=== PATIENT | male | born 1990 | race Caucasian/White ===

== ENCOUNTER 2018-07-31 01:28 | Emergency (ER) | payer OTHER ==
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
[2018-07-31 02:33] LABS: ABSOLUTE BASOPHILS # (AUTO) 0.1 10^3/uL (0.0-0.2); ABSOLUTE EOSINOPHILS # (AUTO) 0.4 10^3/uL (0.0-0.6); ABSOLUTE LYMPHOCYTES (AUTO) 1.8 10^3/uL (0.5-4.7); ABSOLUTE MONOCYTES (AUTO) 0.7 10^3/uL (0.1-1.4); ABSOLUTE NEUT (AUTO) 6.1 10^3/uL (1.7-8.2); BASOPHILS % (AUTO) 0.6 % (0-2); EOSINOPHILS % (AUTO) 4.7 % (0-6); HEMATOCRIT 42.4 % (37.9-51.0); HEMOGLOBIN 14.8 g/dL (13.5-17.0); LYMPHOCYTES % (AUTO) 19.6 % (13-45); MEAN CORPUSCULAR HEMOGLOBIN 30.5 pg (27.0-33.4); MEAN CORPUSCULAR VOLUME 87 fl (80-97); MONOCYTES % (AUTO) 7.7 % (3-13); PLATELET COUNT 251 10^3/uL (150-450); RED BLOOD COUNT 4.86 10^6/uL (4.35-5.55); RED CELL DISTRIBUTION WIDTH 12.2 % (11.5-14.0); SEGMENTED NEUTROPHILS % (AUTO) 67.4 % (42-78); TOTAL CELLS COUNTED % (AUTO) 100 %
[2018-07-31 02:48] LABS: ALANINE AMINOTRANSFERASE 31 U/L (21-72); ALBUMIN 4.5 g/dL (3.5-5.0); ALKALINE PHOSPHATASE 50 U/L (38-126); ANION GAP 10 (5-19); ASPARTATE AMINO TRANSFERASE 28 U/L (17-59); BILIRUBIN,DIRECT 0.3 mg/dL (0.0-0.4); BILIRUBIN,TOTAL 0.5 mg/dL (0.2-1.3); BLOOD UREA NITROGEN 11 mg/dL (7-20); CALCIUM 9.6 mg/dL (8.4-10.2); CARBON DIOXIDE 28 mmol/L (22-30); CHLORIDE 101 mmol/L (98-107); GLUCOSE 100 mg/dL (75-110); POTASSIUM 3.9 mmol/L (3.6-5.0); SODIUM 139.4 mmol/L (137-145); TOTAL PROTEIN 7.3 g/dL (6.3-8.2)
[2018-07-31 03:33] VITALS: BP 135/84
== END 2018-07-31 03:33 | disposition home or self-care (01) ==
LOC: ER 01:28
DX: F41.9 Anxiety disorder, unspecified (principal); F32.9 Major depressive disorder, single episode, unspecified; R11.0 Nausea; R19.7 Diarrhea, unspecified; Z87.891 Personal history of nicotine dependence
CPT/HCPCS: 36415; 80053; 85025; 87040; 99284

== ENCOUNTER 2018-11-03 00:41 | Emergency (ER) | payer OTHER ==
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
[2018-11-03 01:59] LABS: ABSOLUTE BASOPHILS # (AUTO) 0.1 10^3/uL (0.0-0.2); ABSOLUTE EOSINOPHILS # (AUTO) 0.7 10^3/uL (0.0-0.6); ABSOLUTE LYMPHOCYTES (AUTO) 2.3 10^3/uL (0.5-4.7); ABSOLUTE NEUT (AUTO) 10.2 10^3/uL (1.7-8.2); BASOPHILS % (AUTO) 0.5 % (0-2); EOSINOPHILS % (AUTO) 5.1 % (0-6); HEMATOCRIT 44.6 % (37.9-51.0); HEMOGLOBIN 15.5 g/dL (13.5-17.0); LYMPHOCYTES % (AUTO) 16.3 % (13-45); MEAN CORPUSCULAR HEMOGLOBIN 30.2 pg (27.0-33.4); MEAN CORPUSCULAR HGB CONC 34.8 g/dL (32.0-36.0); MEAN CORPUSCULAR VOLUME 87 fl (80-97); MONOCYTES % (AUTO) 6.9 % (3-13); PLATELET COUNT 285 10^3/uL (150-450); RED BLOOD COUNT 5.13 10^6/uL (4.35-5.55); RED CELL DISTRIBUTION WIDTH 12.9 % (11.5-14.0); SEGMENTED NEUTROPHILS % (AUTO) 71.2 % (42-78); TOTAL CELLS COUNTED % (AUTO) 100 %; WHITE BLOOD COUNT 14.2 10^3/uL (4.0-10.5)
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
[2018-11-03 02:18] LABS: APPEARANCE,URINE SLIGHTLY-CLOUDY; BILIRUBIN,URINE NEGATIVE (NEGATIVE); COLOR,URINE YELLOW; GLUCOSE, URINE NEGATIVE (NEGATIVE); KETONES,URINE NEGATIVE (NEGATIVE); LEUKOCYTE ESTERASE,URINE NEGATIVE (NEGATIVE); NITRITE,URINE NEGATIVE (NEGATIVE); PROTEIN,URINE NEGATIVE (NEGATIVE); URINE SPECIFIC GRAVITY 1.018; UROBILINOGEN,URINE NEGATIVE mg/dL (<2.0)
[2018-11-03 02:25] LABS: ALANINE AMINOTRANSFERASE 51 U/L (21-72); ALBUMIN 5.2 g/dL (3.5-5.0); ALKALINE PHOSPHATASE 67 U/L (38-126); ANION GAP 14 (5-19); ASPARTATE AMINO TRANSFERASE 32 U/L (17-59); BILIRUBIN,DIRECT 0.3 mg/dL (0.0-0.4); BILIRUBIN,TOTAL 0.6 mg/dL (0.2-1.3); BLOOD UREA NITROGEN 19 mg/dL (7-20); CALCIUM 10.4 mg/dL (8.4-10.2); CARBON DIOXIDE 32 mmol/L (22-30); CHLORIDE 99 mmol/L (98-107); GLUCOSE 103 mg/dL (75-110); POTASSIUM 4.1 mmol/L (3.6-5.0); SODIUM 145.2 mmol/L (137-145); TOTAL PROTEIN 8.8 g/dL (6.3-8.2)
[2018-11-03 02:28] LABS: ALCOHOL < 10 mg/dL (NONE DETECTED)
[2018-11-03 02:34] LABS: URINE AMPHETAMINES SCREEN NEGATIVE; URINE BARBITURATES SCREEN NEGATIVE; URINE BENZODIAZEPINES SCREEN NEGATIVE; URINE COCAINE SCREEN NEGATIVE; URINE MARIJUANA (THC) SCREEN NEGATIVE; URINE METHADONE SCREEN NEGATIVE; URINE PHENCYCLIDINE SCREEN NEGATIVE
[2018-11-03 03:04] VITALS: BP 158/72
== END 2018-11-03 03:03 | disposition home or self-care (01) ==
LOC: ER 00:41
DX: S33.5XXA Sprain of ligaments of lumbar spine, initial encounter (principal); S16.1XXA Strain of muscle, fascia and tendon at neck level, initial encounter; M54.2 Cervicalgia; M54.5 Low back pain; R10.817 Generalized abdominal tenderness; V47.5XXA Car driver injured in collision with fixed or stationary object in traffic accident, initial encounter; Y92.007 Garden or yard of unspecified non-institutional (private) residence as the place of occurrence of the external cause; R04.2 Hemoptysis; R53.83 Other fatigue; F17.210 Nicotine dependence, cigarettes, uncomplicated; Z88.0 Allergy status to penicillin; Z88.1 Allergy status to other antibiotic agents
CPT/HCPCS: 36415; 70450; 71046; 72125; 72131; 80053; 80307; 81001; 85025; 99284

== ENCOUNTER 2018-11-14 14:25 | Emergency (ER) | payer SELFPAY ==
[2018-11-14 16:19] LABS: ABSOLUTE BASOPHILS # (AUTO) 0.1 10^3/uL (0.0-0.2); ABSOLUTE EOSINOPHILS # (AUTO) 0.1 10^3/uL (0.0-0.6); ABSOLUTE LYMPHOCYTES (AUTO) 1.9 10^3/uL (0.5-4.7); ABSOLUTE MONOCYTES (AUTO) 1.2 10^3/uL (0.1-1.4); ABSOLUTE NEUT (AUTO) 9.4 10^3/uL (1.7-8.2); BASOPHILS % (AUTO) 0.4 % (0-2); EOSINOPHILS % (AUTO) 0.7 % (0-6); HEMATOCRIT 44.4 % (37.9-51.0); LYMPHOCYTES % (AUTO) 14.9 % (13-45); MEAN CORPUSCULAR HEMOGLOBIN 29.6 pg (27.0-33.4); MEAN CORPUSCULAR HGB CONC 33.7 g/dL (32.0-36.0); MEAN CORPUSCULAR VOLUME 88 fl (80-97); MONOCYTES % (AUTO) 9.6 % (3-13); PLATELET COUNT 294 10^3/uL (150-450); RED BLOOD COUNT 5.06 10^6/uL (4.35-5.55); RED CELL DISTRIBUTION WIDTH 13.7 % (11.5-14.0); SEGMENTED NEUTROPHILS % (AUTO) 74.4 % (42-78); TOTAL CELLS COUNTED % (AUTO) 100 %; WHITE BLOOD COUNT 12.6 10^3/uL (4.0-10.5)
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
[2018-11-14 16:39] LABS: ALANINE AMINOTRANSFERASE 32 U/L (21-72); ALKALINE PHOSPHATASE 58 U/L (38-126); ANION GAP 10 (5-19); ASPARTATE AMINO TRANSFERASE 22 U/L (17-59); BILIRUBIN,DIRECT 0.2 mg/dL (0.0-0.4); BILIRUBIN,TOTAL 0.7 mg/dL (0.2-1.3); BLOOD UREA NITROGEN 21 mg/dL (7-20); CALCIUM 10.1 mg/dL (8.4-10.2); CARBON DIOXIDE 28 mmol/L (22-30); CHLORIDE 102 mmol/L (98-107); GLUCOSE 104 mg/dL (75-110); POTASSIUM 4.3 mmol/L (3.6-5.0); SODIUM 139.7 mmol/L (137-145)
[2018-11-14 16:42] LABS: ACETAMINOPHEN < 10 ug/mL (10-30); ALCOHOL < 10 mg/dL (NONE DETECTED); SALICYLATE < 1.0 mg/dL (2.0-20.0)
[2018-11-14] MEDS ORDERED: HALOPERIDOL LACTATE INJ 5 MG/1 ML VIAL IM ONE (16:48)
[2018-11-14] MEDS ORDERED: CHLORPROMAZINE HCL 50 MG TABLET PO PRN (16:49)
[2018-11-14] MEDS ORDERED: BENZTROPINE MESYLATE INJ 2 MG/2 ML AMPULE IM ONE (16:49)
[2018-11-14 16:53] LABS: AMORPHOUS SEDIMENT,URINE TRACE /HPF; APPEARANCE,URINE CLOUDY; BILIRUBIN,URINE NEGATIVE (NEGATIVE); COLOR,URINE YELLOW; GLUCOSE, URINE NEGATIVE (NEGATIVE); KETONES,URINE NEGATIVE (NEGATIVE); LEUKOCYTE ESTERASE,URINE NEGATIVE (NEGATIVE); NITRITE,URINE NEGATIVE (NEGATIVE); PROTEIN,URINE 100 mg/dL (NEGATIVE); URINE SPECIFIC GRAVITY 1.025; UROBILINOGEN,URINE NEGATIVE mg/dL (<2.0)
--- NOTE | 2018-11-14 16:56 | PSYCHOLOGICAL NOTE ---
Psych Note - Psych Note Date seen by psych provider: 11/14/18 Time seen by psych provider: 15:30 Psych Note: Reason for Consult: homicidal ideation, or behavior Patient is observed appearing to be possibly under the influence. Patient's eyes are starting around the room as he speaks with clinician. He discloses paranoid delusions of not remembering anything and confusion on what brought him to [facility]. Clinician notes patient was previously disclosing to [facility] staff and D that he wanted to kill people has told his parents guns. He also reported that he had previously been to [place] to obtain sobriety. Patient states he has no memory of any of this. Patient is alert and orientated to person place. Mood is anxious with congruent affect. Clinician notes patient's eyes is starting around the room and makes very little eye contact. Patient currently denies homicidal and suicidal ideation however it is noted that the patient just previously reported homicidal ideation proximally 30 minutes ago to [facility] staff and D. Patient is very anxious confused presents as if under the influence of methamphetamine. Medication recommendations per [facility]'s contracted psychiatrist Dr. 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 There is concern the patient is currently under the influence. Medication recommendations have been provided; patient will be reevaluated. Dr. Kahn was consulted and care management this patient; attending physicians in agreement with recommendations and disposition.
[2018-11-14 17:09] LABS: URINE BARBITURATES SCREEN NEGATIVE; URINE BENZODIAZEPINES SCREEN UNCONFIRMED POSITIVE; URINE COCAINE SCREEN NEGATIVE; URINE MARIJUANA (THC) SCREEN NEGATIVE; URINE METHADONE SCREEN NEGATIVE; URINE PHENCYCLIDINE SCREEN NEGATIVE
--- NOTE | 2018-11-14 17:41 | EKG REPORT ---
SEVERITY:- OTHERWISE NORMAL ECG - SINUS TACHYCARDIA : Confirmed by: Jeffrey Curtis MD 14-Nov-2018 17:40:10
[2018-11-14 18:25] LABS: CHLAM PCR NOT DETECTED (NOT DETECT); GON PCR NOT DETECTED (NOT DETECT)
--- NOTE | 2018-11-15 09:11 | ER Document Report ---
Doctor's Note Notes: 11/15/18 09:11 As the rounding physician for our psychiatric patients, I have reviewed the chart, vitals, lab work. Patient has been examined and noted to be . I am awaiting mental health in put.
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
[2018-11-15 12:54] VITALS: BP 106/60
== END 2018-11-15 13:00 | disposition home or self-care (01) ==
LOC: ER 14:25
DX: R45.850 Homicidal ideations (principal); F11.99 Opioid use, unspecified with unspecified opioid-induced disorder; F32.9 Major depressive disorder, single episode, unspecified; R00.0 Tachycardia, unspecified; R03.0 Elevated blood-pressure reading, without diagnosis of hypertension; F17.210 Nicotine dependence, cigarettes, uncomplicated; Z71.6 Tobacco abuse counseling; Z88.0 Allergy status to penicillin; Z88.1 Allergy status to other antibiotic agents
CPT/HCPCS: 93005; 99406; 99285; 96372; 36415; 80307 ×4; 85025; 80053; 81001; 87491; 87591; 93010; J0515; J1630

== ENCOUNTER 2018-11-26 16:27 | Emergency (ER) | payer OTHER ==
[2018-11-26 16:41] VITALS: BP 128/84
--- NOTE | 2018-11-26 18:25 | RADIOLOGY REPORT (SQ) ---
EXAM DESCRIPTION: WRIST LEFT 3 VIEWS COMPLETED DATE/TIME: 11/26/2018 6:05 pm REASON FOR STUDY: fall COMPARISON: None. NUMBER OF VIEWS: Four views TECHNIQUE: AP, lateral, oblique, and scaphoid radiographic images acquired of the left wrist. LIMITATIONS: None. FINDINGS: MINERALIZATION: Normal. BONES: No acute fracture or dislocation. No worrisome bone lesions. Normal alignment. SOFT TISSUES: No soft tissue swelling. No foreign body. OTHER: No other significant finding. IMPRESSION: NEGATIVE STUDY OF THE LEFT WRIST. NO RADIOGRAPHIC EVIDENCE OF ACUTE INJURY. TECHNICAL DOCUMENTATION: JOB ID: [id number] [employer]- All Rights Reserved Reading location - IP/workstation name: [email or web address]
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
== END 2018-11-26 19:05 | disposition home or self-care (01) ==
LOC: ER 16:27
DX: S69.92XA Unspecified injury of left wrist, hand and finger(s), initial encounter (principal); M25.532 Pain in left wrist; V87.7XXA Person injured in collision between other specified motor vehicles (traffic), initial encounter; X50.9XXA Other and unspecified overexertion or strenuous movements or postures, initial encounter
CPT/HCPCS: 99283; 73110; L3908

== ENCOUNTER 2018-12-03 17:07 | Emergency (ER) | payer SELFPAY ==
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
[2018-12-03] MEDS ORDERED: DIPH/PERTUSS(ACELL)/TETANUS VAC/PF 0.5 ML SYR (>=10YO) IM ONE (18:13)
[2018-12-03] MEDS ORDERED: IBUPROFEN 800 MG TABLET PO ONE (18:13)
[2018-12-03] MEDS ORDERED: LIDOCAINE 1% INJ-PF (10 MG/ML) 30 ML SDV INJ ONE (18:14)
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
[2018-12-03] MEDS ORDERED: KETOROLAC TROMETHAMINE INJ/PF 30 MG/1 ML SDV IV ONE (20:16)
[2018-12-03] MEDS ORDERED: ONDANSETRON HCL INJ/PF 4 MG/2 ML SDV IV ONE (20:16)
[2018-12-03] MEDS ORDERED: DOXYCYCLINE HYCLATE 100 MG TABLET PO ONE (20:54)
[2018-12-03 22:41] VITALS: BP 130/72
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
== END 2018-12-03 22:41 | disposition home or self-care (01) ==
LOC: ER 17:07
DX: S41.111A Laceration without foreign body of right upper arm, initial encounter (principal); S09.90XA Unspecified injury of head, initial encounter; M25.521 Pain in right elbow; Y09 Assault by unspecified means; Y04.0XXA Assault by unarmed brawl or fight, initial encounter; Z88.0 Allergy status to penicillin; Z88.3 Allergy status to other anti-infective agents; Z23 Encounter for immunization; F17.200 Nicotine dependence, unspecified, uncomplicated
CPT/HCPCS: 99284; 90471; 96374; 96375; 73130; 73110; 70450; 72125; 90715; 12002; J3490; J1885; J2405

== ENCOUNTER 2018-12-04 00:47 | Emergency (ER) | payer SELFPAY ==
[2018-12-04] MEDS ORDERED: LIDOCAINE 1%/EPINEPHRINE INJ 20 ML VIAL INJ ONE (02:42)
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
[2018-12-04 06:08] VITALS: BP 123/52
== END 2018-12-04 06:06 | disposition home or self-care (01) ==
LOC: ER 00:47
DX: S61.411A Laceration without foreign body of right hand, initial encounter (principal); S01.111A Laceration without foreign body of right eyelid and periocular area, initial encounter; Y09 Assault by unspecified means; F12.10 Cannabis abuse, uncomplicated; Z88.0 Allergy status to penicillin; Z88.1 Allergy status to other antibiotic agents
CPT/HCPCS: 99283; 12002; J3490

== ENCOUNTER 2018-12-04 08:55 | Observation (INO) | payer SELFPAY ==
[~2018-12-04 08:55] MED LIST: SUCCINYLCHOLINE CHLORIDE INJ 200 MG/10 ML VIAL ONE
[2018-12-04] MEDS ORDERED: LIDOCAINE 1% INJ-PF (10 MG/ML) 30 ML SDV INJ ONE (09:04)
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
[2018-12-04] MEDS ORDERED: FENTANYL CITRATE INJ/PF 100 MCG/2 ML AMPUL IV ONE (09:25)
[2018-12-04] MEDS ORDERED: ONDANSETRON HCL INJ/PF 4 MG/2 ML SDV IV ONE (09:27)
[2018-12-04] MEDS ORDERED: LIDOCAINE 2% INJ-PF (20 MG/ML) 10 ML AMPUL ONE (10:02)
[2018-12-04] MEDS ORDERED: MIDAZOLAM 2 MG/2 ML INJ ONE (10:03)
[2018-12-04] MEDS ORDERED: PROPOFOL INJ 200 MG/20 ML VIAL IV ONE (10:03)
[2018-12-04] MEDS ORDERED: DEXAMETHASONE SOD PHOSPHATE INJ 4 MG/1 ML VIAL ONE (10:03)
[2018-12-04] MEDS ORDERED: PROMETHAZINE HCL INJ 25 MG/1 ML VIAL ONE (10:03)
[2018-12-04] MEDS ORDERED: EPHEDRINE SULFATE INJ 50 MG/1 ML AMPULE ONE (10:03)
[2018-12-04] MEDS ORDERED: FENTANYL CITRATE INJ/PF 100 MCG/2 ML AMPUL ONE (10:03)
[2018-12-04] MEDS ORDERED: ONDANSETRON HCL INJ/PF 4 MG/2 ML SDV ONE (10:04)
[2018-12-04] MEDS ORDERED: ACETAMINOPHEN 0 MG/0 ML RTUPB IV ONE (10:04)
[2018-12-04] MEDS ORDERED: KETAMINE HCL INJ 500 MG/10 ML VIAL ONE (10:18)
[2018-12-04] MEDS ORDERED: DEXMEDETOMIDINE INJ 80 MCG/20 ML VIAL IV ONE (10:19)
[2018-12-04] MEDS ORDERED: FENTANYL CITRATE INJ/PF 250 MCG/5 ML AMPULE ONE (10:19)
[2018-12-04] MEDS ORDERED: VANCOMYCIN HCL INJ 1000 MG VIAL ONE (10:19)
[2018-12-04 10:49] LABS: HEMATOCRIT 33.7 % (37.9-51.0); HEMOGLOBIN 11.6 g/dL (13.5-17.0); MEAN CORPUSCULAR HEMOGLOBIN 30.3 pg (27.0-33.4); MEAN CORPUSCULAR HGB CONC 34.3 g/dL (32.0-36.0); MEAN CORPUSCULAR VOLUME 89 fl (80-97); PLATELET COUNT 188 10^3/uL (150-450); RED BLOOD COUNT 3.81 10^6/uL (4.35-5.55); RED CELL DISTRIBUTION WIDTH 13.5 % (11.5-14.0); WHITE BLOOD COUNT 20.9 10^3/uL (4.0-10.5)
[2018-12-04] MEDS ORDERED: ONDANSETRON HCL INJ/PF 4 MG/2 ML SDV IV PRN (13:56)
[2018-12-04] MEDS ORDERED: MEPERIDINE HCL/PF INJ 25 MG/1 ML DISP.SYRIN IV PRN (13:56)
[2018-12-04] MEDS ORDERED: PROMETHAZINE HCL INJ 25 MG/1 ML VIAL IV PRN ×2 (13:56)
[2018-12-04] MEDS ORDERED: FENTANYL CITRATE INJ/PF 100 MCG/2 ML AMPUL IV PRN ×3 (13:56)
[2018-12-04] MEDS ORDERED: DIPHENHYDRAMINE HCL 50 MG/ML VIAL IV PRN (13:56)
--- NOTE | 2018-12-04 14:35 | PDOC H&P ---
History of Present Illness Admission Date/PCP: 12/04/18 10:07 Patient complains of: bleeding from right wrist History of Present Illness: TONY HUTSON is a 28 year old male who is being taken cared for by ER MD for bleeding from right wrist laceration. Patient apparently not able to tell cause of laceration with bleeding. I took over care of patient in the ER but unable to control the bleeding and lost some blood. Has a tourniquet right arm. Patient immediately brought to the OR where he had ligation of a branch of the radial artery close to the base of the hypothenar muscle , under general anesthesisa. He was hypotensive at the end of the case and given 2 units PRBC in the OR with stabilization of vital signs. Past Medical History Psychiatric Medical History: Reports: Depression Past Surgical History Past Surgical History: Reports: Orthopedic Surgery - right hand; left knee Social History Smoking Status: Current Every Day Smoker - Advance Directive Resuscitation Status: Full Code Family History Family History: None Parental Family History Reviewed: No Children Family History Reviewed: No Sibling(s) Family History Reviewed.: No Medication/Allergy Home Medications: No Home Medications 12/04/18 Allergies/Adverse Reactions: amoxicillin Allergy (Verified 11/26/18 16:29) azithromycin [From Zithromax] Allergy (Verified 11/26/18 16:29) Penicillins Allergy (Verified 11/26/18 16:29) Review of Systems Musculoskeletal: PRESENT: other - laceration right wrist/ base of palm with transection of a branch of the radial artery. Neurological: PRESENT: other - able to feel with right finges at the completion of surgery Physical Exam Vital Signs: Temp Pulse Resp BP Pulse Ox 97.5 F 93 16 112/69 100 12/04/18 11:40 12/04/18 12:25 12/04/18 12:25 12/04/18 12:25 12/04/18 12:25 Intake & Output 12/03/18 12/04/18 12/05/18 06:59 06:59 06:59 Weight 80.739 kg General appearance: PRESENT: mild distress Eye exam: PRESENT: conjunctiva pink Mouth exam: PRESENT: dry mucosa Neck exam: PRESENT: full ROM Respiratory exam: PRESENT: clear to auscultation kenyatta Cardiovascular exam: PRESENT: RRR Pulses: PRESENT: normal carotid pulses Vascular exam: PRESENT: normal capillary refill GI/Abdominal exam: PRESENT: soft Rectal exam: PRESENT: deferred Extremities exam: PRESENT: other - laceration base of right thenar muscle with transection of a branch of the radial artery Musculoskeletal exam: PRESENT: ambulatory Neurological exam: PRESENT: alert, oriented to person, oriented to place, oriented to time, oriented to situation Psychiatric exam: PRESENT: anxious Skin exam: PRESENT: normal color, warm Results Laboratory Results: 12/04/18 09:39 12/04/18 12/04/18 09:39 10:42 WBC 20.9 H RBC 3.81 L Hgb 11.6 L Hct 33.7 L MCV 89 MCH 30.3 MCHC 34.3 RDW 13.5 Plt Count 188 Blood Type B POSITIVE Antibody Screen NEGATIVE Assessment & Plan - Diagnosis (3) Laceration of right palm Qualifiers: Encounter type: initial encounter Qualified Code(s): S61.411A - Laceration without foreign body of right hand, initial encounter Is this a current diagnosis for this admission?: Yes (4) Lacerations of multiple sites of right arm Is this a current diagnosis for this admission?: Yes - Time Time Spent: 30 to 50 Minutes - Inpatient Certification Medical Necessity: Need Close Monitoring Due to Risk of Patient Decompensation, Need For IV Fluids, Need for Pain Control, Need for IV Antibiotics, Risk of Complication if Not Cared For in Hospital - Plan Summary Plan Summary: Transfused 2 units PRBCs Monitor right arm circulation and function IV antibiotics
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
[2018-12-04 17:29] LABS: ABSOLUTE BASOPHILS # (AUTO) 0.1 10^3/uL (0.0-0.2); ABSOLUTE EOSINOPHILS # (AUTO) 0.3 10^3/uL (0.0-0.6); ABSOLUTE LYMPHOCYTES (AUTO) 2.2 10^3/uL (0.5-4.7); ABSOLUTE NEUT (AUTO) 7.5 10^3/uL (1.7-8.2); BASOPHILS % (AUTO) 0.9 % (0-2); HEMOGLOBIN 10.8 g/dL (13.5-17.0); LYMPHOCYTES % (AUTO) 20.1 % (13-45); MEAN CORPUSCULAR HEMOGLOBIN 30.5 pg (27.0-33.4); MEAN CORPUSCULAR HGB CONC 34.8 g/dL (32.0-36.0); MEAN CORPUSCULAR VOLUME 88 fl (80-97); MONOCYTES % (AUTO) 8.5 % (3-13); PLATELET COUNT 134 10^3/uL (150-450); RED BLOOD COUNT 3.54 10^6/uL (4.35-5.55); RED CELL DISTRIBUTION WIDTH 13.9 % (11.5-14.0); SEGMENTED NEUTROPHILS % (AUTO) 67.5 % (42-78); TOTAL CELLS COUNTED % (AUTO) 100 %; WHITE BLOOD COUNT 11.1 10^3/uL (4.0-10.5)
[2018-12-04] MEDS: KETOROLAC TROMETHAMINE INJ/PF 30 MG/1 ML SDV IV SCH ×2 (17:29→23:49)
[2018-12-04] MEDS ORDERED: VANCOMYCIN HCL 1,000 MG in DEXTROSE 5%-WATER 250 ML IV SCH (22:00)
[2018-12-04] MEDS: VANCOMYCIN HCL 1,250 MG in DEXTROSE 5%-WATER 250 ML IV SCH (22:06)
[2018-12-05] MEDS: KETOROLAC TROMETHAMINE INJ/PF 30 MG/1 ML SDV IV SCH ×2 (05:16→15:04)
[2018-12-05] MEDS: VANCOMYCIN HCL 1,250 MG in DEXTROSE 5%-WATER 250 ML IV SCH ×2 (05:16→15:04)
[2018-12-05 08:08] LABS: ABSOLUTE BASOPHILS # (AUTO) 0.1 10^3/uL (0.0-0.2); ABSOLUTE EOSINOPHILS # (AUTO) 0.4 10^3/uL (0.0-0.6); ABSOLUTE LYMPHOCYTES (AUTO) 2.2 10^3/uL (0.5-4.7); ABSOLUTE MONOCYTES (AUTO) 0.9 10^3/uL (0.1-1.4); ABSOLUTE NEUT (AUTO) 7.1 10^3/uL (1.7-8.2); BASOPHILS % (AUTO) 0.5 % (0-2); EOSINOPHILS % (AUTO) 4.1 % (0-6); HEMATOCRIT 28.4 % (37.9-51.0); HEMOGLOBIN 10.1 g/dL (13.5-17.0); LYMPHOCYTES % (AUTO) 20.6 % (13-45); MEAN CORPUSCULAR HGB CONC 35.7 g/dL (32.0-36.0); MEAN CORPUSCULAR VOLUME 87 fl (80-97); MONOCYTES % (AUTO) 8.3 % (3-13); PLATELET COUNT 127 10^3/uL (150-450); RED BLOOD COUNT 3.26 10^6/uL (4.35-5.55); RED CELL DISTRIBUTION WIDTH 13.8 % (11.5-14.0); SEGMENTED NEUTROPHILS % (AUTO) 66.5 % (42-78); TOTAL CELLS COUNTED % (AUTO) 100 %; WHITE BLOOD COUNT 10.7 10^3/uL (4.0-10.5)
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
[2018-12-05 15:39] VITALS: BP 101/83
== END 2018-12-05 17:00 | disposition home or self-care (01) ==
LOC: ER 08:55 → INTOOBSV 10:07 → EH 10:07 → 4N 13:05
PROVIDERS: ADMIT Surgery; ATTEND Surgery
PROC: 03QB0ZZ Repair Right Radial Artery, Open Approach (ICD-10-PCS; 2018-12-04)
PROC: 0KQC0ZZ Repair Right Hand Muscle, Open Approach (ICD-10-PCS; 2018-12-04)
PROC: 30233N1 Transfusion of Nonautologous Red Blood Cells into Peripheral Vein, Percutaneous Approach (ICD-10-PCS; principal; 2018-12-04 11:00)
DX: S65.111A Laceration of radial artery at wrist and hand level of right arm, initial encounter (principal); S61.411A Laceration without foreign body of right hand, initial encounter; S66.821A Laceration of other specified muscles, fascia and tendons at wrist and hand level, right hand, initial encounter; S41.111A Laceration without foreign body of right upper arm, initial encounter; T14.8XXA Other injury of unspecified body region, initial encounter; Y04.0XXA Assault by unarmed brawl or fight, initial encounter; W25.XXXA Contact with sharp glass, initial encounter; I95.81 Postprocedural hypotension; F17.200 Nicotine dependence, unspecified, uncomplicated; Z98.890 Other specified postprocedural states; R00.0 Tachycardia, unspecified; Z88.0 Allergy status to penicillin
CPT/HCPCS: 99291; 96374; 96375; 86900; 86901; 36415 ×2; 36430; 86850; 82565; 85025 ×2; 86920; 35207; 13131; G0378 ×2; P9016; J2250; J3010 ×2; J3490; J1885 ×2; J0330; J2405; J7060 ×2; J3370 ×2; 1840; J0131; J1100; J2550; J2704

== ENCOUNTER 2019-11-17 17:23 | Emergency (ER) | payer SELFPAY ==
[2019-11-17 19:46] VITALS: BP 123/75
--- NOTE | 2019-11-17 19:55 | ER Document Report ---
ED General - General Chief Complaint: Possible Overdose Stated Complaint: POSSIBLE OVERDOSE Time Seen by Provider: 11/17/19 18:33 Mode of Arrival: Medic Information source: Patient TRAVEL OUTSIDE OF THE [place] IN LAST 30 DAYS: No - HPI Onset: Other - patient says he used a needle that someone with HIV and Hep C used about 2 weeks ago. Patient used heroin again today but he says this was with a clean needle Onset/Duration: Gradual Quality of pain: No pain Severity: Mild Associated symptoms: Other - light headed Exacerbated by: Denies Relieved by: Denies Similar symptoms previously: Yes - patient has used drugs in the past frequently Recently seen / treated by doctor: No Notes: 29 year old male with a history of substance abuse (sounds like mostly Heroin) here because he injected Heroin today and because he would like to be tested for HIV and Hepatitis. The patient says he he used a needle about 2 weeks ago that another person who has HIV and Hep C apparently is known to have. The patient says he is not really here for OD symptoms despite what EMS said on patient arrival. The patient is really here because he wants to be tested for HIV and Hepatitis. The patient denies any systemic symptoms of an infectious process however. - Related Data Allergies/Adverse Reactions: amoxicillin Allergy (Verified 11/26/18 16:29) azithromycin [From Zithromax] Allergy (Verified 11/26/18 16:29) Penicillins Allergy (Verified 11/26/18 16:29) Past Medical History - Social History Smoking Status: Current Some Day Smoker Chew tobacco use (# tins/day): No Frequency of alcohol use: Occasional Drug Abuse: Heroin Lives with: Alone Family History: Reviewed & Not Pertinent Patient has suicidal ideation: No Patient has homicidal ideation: No Renal/ Medical History: Denies: Hx Peritoneal Dialysis Psychiatric Medical History: Reports: Hx Depression - Anxiety, Other - Substance Abuse Past Surgical History: Reports: Hx Orthopedic Surgery - right hand; left knee - Immunizations Immunizations up to date: Yes Hx Diphtheria, Pertussis, Tetanus Vaccination: Yes Review of Systems - Review of Systems Constitutional: No symptoms reported EENT: No symptoms reported Cardiovascular: No symptoms reported Respiratory: No symptoms reported Gastrointestinal: No symptoms reported Genitourinary: No symptoms reported Male Genitourinary: No symptoms reported Musculoskeletal: No symptoms reported Skin: No symptoms reported Hematologic/Lymphatic: No symptoms reported Neurological/Psychological: Other - drug use/relapse (heroin) Physical Exam - Vital signs Vitals: Resp Pulse Ox 16 100 11/17/19 17:35 11/17/19 17:35 - Notes Notes: GENERAL: Well-appearing, well-nourished and in no acute distress. Poor hygiene. HEAD: Atraumatic, normocephalic. EYES: Pupils equal round and reactive to light, extraocular movements intact, sclera anicteric, conjunctiva are normal. ENT: TMs normal, nares patent, oropharynx clear without exudates. Moist mucous membranes. NECK: Normal range of motion, supple without lymphadenopathy or JVD. LUNGS: Breath sounds clear to auscultation bilaterally and equal. No wheezes rales or rhonchi. HEART: Regular rate and rhythm without murmurs, rubs or gallops. ABDOMEN: Soft, nontender, normoactive bowel sounds. No guarding, no rebound. No masses appreciated. EXTREMITIES: Normal range of motion, no pitting or edema. No clubbing or cyanosis. NEUROLOGICAL: Cranial nerves II through XII grossly intact. Normal speech, normal gait. PSYCH: Normal mood, normal affect. SKIN: Warm, Dry, normal turgor, no rashes or lesions noted. Course - Re-evaluation Re-evalutation: 11/17/19 20:46 The patient came to the ER since he wanted to be tested for HIV and Hepatitis. I ordered these tests for the patient but he apparently eloped before the blood work could be obtained. The patient had no SI or HI and he was using drugs to get high and not to harm himself. I offered the patient outpatient mental health services before he eloped but he declined said services. - Vital Signs Vital signs: Temp Pulse Resp BP Pulse Ox 10 L 123/75 99 11/17/19 19:01 11/17/19 19:01 11/17/19 19:01 Discharge - Discharge Clinical Impression: Heroin abuse Condition: Stable Disposition: ELOPED Additional Instructions: Stop using heroin and other stress drugs. Follow up with a primary car e doctor or another clinic for HIV and Hepatitis Testing since you left before testing could be done here in the ER.
--- NOTE | 2019-11-17 21:29 | EKG REPORT ---
SEVERITY:- NORMAL ECG - SINUS RHYTHM : Confirmed by: Rosalinda Ma MD 17-Nov-2019 21:27:40
== END 2019-11-17 20:29 | disposition left against medical advice (07) ==
LOC: ER 17:23
DX: F11.10 Opioid abuse, uncomplicated (principal); Z20.5 Contact with and (suspected) exposure to viral hepatitis; Z20.828 Contact with and (suspected) exposure to other viral communicable diseases; F17.200 Nicotine dependence, unspecified, uncomplicated; Z88.0 Allergy status to penicillin; Z88.1 Allergy status to other antibiotic agents; Z53.20 Procedure and treatment not carried out because of patient's decision for unspecified reasons
CPT/HCPCS: 93005; 93010; 99281

== ENCOUNTER 2019-12-02 16:35 | Emergency (ER) | payer SELFPAY ==
[2019-12-02] MEDS ORDERED: NORMAL SALINE 1000 ML 1,000 ML IV ONE (18:09)
--- NOTE | 2019-12-02 18:35 | ER Document Report ---
ED General - General Chief Complaint: Drug Abuse Stated Complaint: POSSIBLE OVERDOSE Time Seen by Provider: 12/02/19 18:06 Mode of Arrival: Medic Information source: Patient, Emergency Med Personnel Cannot obtain history due to: Intoxicated, Uncooperative TRAVEL OUTSIDE OF THE [place] IN LAST 30 DAYS: No - HPI Onset: Other - sometime today Onset/Duration: Gradual Quality of pain: No pain Severity: Moderate Pain Level: Denies Associated symptoms: Other - altered mental status Exacerbated by: Denies Relieved by: Denies Notes: 29 year old male with a history of polysubtance abuse brought to the ER by EMS for concern of a possible overdose. The patient apparently used cocaine, meth, and alcohol. The patient is not being very cooperative with me and he moans during most of my exam. The patient denies SI or HI. I recently saw the patient in this ER because he wanted to be tested for HIV and Hepatitis but he ended up leaving before the testing could be done. - Related Data Allergies/Adverse Reactions: amoxicillin Allergy (Verified 11/26/18 16:29) azithromycin [From Zithromax] Allergy (Verified 11/26/18 16:29) Penicillins Allergy (Verified 11/26/18 16:29) Past Medical History - General Information source: Patient, Emergency Med Personnel - Social History Smoking Status: Current Every Day Smoker Frequency of alcohol use: Heavy Drug Abuse: Heroin, Methamphetamine, Prescription drugs Family History: Reviewed & Not Pertinent Patient has suicidal ideation: No Patient has homicidal ideation: No Renal/ Medical History: Denies: Hx Peritoneal Dialysis Psychiatric Medical History: Reports: Hx Depression - Anxiety, Other - substance abuse Past Surgical History: Reports: Hx Orthopedic Surgery - right hand; left knee - Immunizations Immunizations up to date: Yes Hx Diphtheria, Pertussis, Tetanus Vaccination: Yes Review of Systems - Review of Systems Constitutional: Weakness EENT: No symptoms reported Cardiovascular: No symptoms reported Respiratory: No symptoms reported Gastrointestinal: No symptoms reported Genitourinary: No symptoms reported Male Genitourinary: No symptoms reported Musculoskeletal: Other - pain in legs, ribs, back neck Skin: Other - abrasion of forehead Hematologic/Lymphatic: No symptoms reported Neurological/Psychological: Confusion Physical Exam - Vital signs Vitals: Resp Pulse Ox 14 99 12/02/19 17:03 12/02/19 17:03 - Notes Notes: GENERAL: Poorly groomed, foul smelling, uncooperative and moaning. EYES: Pupils equal round and reactive to light, extraocular movements intact, sclera anicteric, conjunctiva are normal. ENT: Nares patent, oropharynx clear without exudates. Moist mucous membranes. NECK: Normal range of motion, supple without lymphadenopathy or JVD. LUNGS: Breath sounds clear to auscultation bilaterally and equal. No wheezes rales or rhonchi. HEART: Regular rate and rhythm without murmurs, rubs or gallops. ABDOMEN: Soft, nontender, normoactive bowel sounds. No guarding, no rebound. No masses appreciated. EXTREMITIES: Normal range of motion, no pitting or edema. No clubbing or cyanosis. NEUROLOGICAL: Cranial nerves II through XII grossly intact. Normal speech, normal gait. PSYCH: Normal mood, normal affect. SKIN: Warm, Dry, Track Arevalo noted on arms. Abrasion over left forehead. Course - Re-evaluation Re-evalutation: 12/03/19 01:25 The patient was brought to the ER due to concern of an overdose. The patient was hemodynamically stable and allowed to sleep off his overdose in the ER. The patient tested positive opiates, THC, and likely for Meth. The patient is a known drug abuser and does not seem to want help with his addiction despite me offering it to him. Patient was able to ambulate and take POs prior to discharge. The patient is complaining of total body pain but he has no midline spinal tenderness and no focal extremity tenderness needing imaging. 12/03/19 01:29 - Vital Signs Vital signs: Temp Pulse Resp BP Pulse Ox 97.9 F 17 116/70 96 12/02/19 21:49 12/03/19 00:01 12/03/19 00:00 12/02/19 23:01 - Laboratory Result Diagrams: 12/02/19 18:05 12/02/19 18:05 Laboratory results interpreted by me: 12/02/19 12/02/19 12/02/19 18:05 18:05 21:05 WBC 14.8 H RBC 4.29 L Hgb 12.5 L Hct 36.3 L Seg Neuts % (Manual) 91 H Band Neutrophils % 7 H Lymphocytes % (Manual) 1 L Monocytes % (Manual) 1 L Abs Neuts (Manual) 14.5 H Abs Lymphs (Manual) 0.1 L Sodium 136.6 L Total Protein 6.2 L Urine Ketones 20 H Salicylates < 1.0 L Acetaminophen < 10 L Discharge - Discharge Clinical Impression: Methamphetamine abuse, Tetrahydrocannabinol (THC) dependence, Opiate abuse, continuous Condition: Stable Disposition: HOME, SELF-CARE Instructions: Instructions for Home Care Following a Drug Overdose ([facility]), Drug Screening ([facility]) Additional Instructions: Follow up with outpatient mental health for help with your drug addiction. Use tylenol and motrin for body pains.
[2019-12-02 18:43] LABS: HEMATOCRIT 36.3 % (37.9-51.0); HEMOGLOBIN 12.5 g/dL (13.5-17.0); MEAN CORPUSCULAR HEMOGLOBIN 29.1 pg (27.0-33.4); MEAN CORPUSCULAR HGB CONC 34.4 g/dL (32.0-36.0); MEAN CORPUSCULAR VOLUME 85 fl (80-97); PLATELET COUNT 223 10^3/uL (150-450); RED BLOOD COUNT 4.29 10^6/uL (4.35-5.55); WHITE BLOOD COUNT 14.8 10^3/uL (4.0-10.5)
[2019-12-02 19:02] LABS: ALBUMIN 3.6 g/dL (3.5-5.0); ALKALINE PHOSPHATASE 68 U/L (38-126); ANION GAP 11 (5-19); ASPARTATE AMINO TRANSFERASE 24 U/L (17-59); BILIRUBIN,DIRECT 0.2 mg/dL (0.0-0.4); BILIRUBIN,TOTAL 1.1 mg/dL (0.2-1.3); BLOOD UREA NITROGEN 17 mg/dL (7-20); CALCIUM 9.1 mg/dL (8.4-10.2); CARBON DIOXIDE 23 mmol/L (22-30); CHLORIDE 103 mmol/L (98-107); GLUCOSE 82 mg/dL (75-110); POTASSIUM 3.6 mmol/L (3.6-5.0); TOTAL PROTEIN 6.2 g/dL (6.3-8.2)
[2019-12-02 19:03] LABS: ACETAMINOPHEN < 10 ug/mL (10-30); ALCOHOL < 10 mg/dL (NONE DETECTED); SALICYLATE < 1.0 mg/dL (2.0-20.0)
[2019-12-02 19:18] LABS: ABSOLUTE LYMPHOCYTES# (MANUAL) 0.1 10^3/uL (0.5-4.7); ABSOLUTE MONOCYTES # (MANUAL) 0.1 10^3/uL (0.1-1.4); BAND NEUTROPHILS % (MANUAL) 7 % (3-5); BASOPHILS % (MANUAL) 0 % (0-2); EOSINOPHILS % (MANUAL) 0 % (0-6); LYMPHOCYTES % (MANUAL) 1 % (13-45); MONOCYTES % (MANUAL) 1 % (3-13); SEGMENTED NEUTROPHILS % (MAN) 91 % (42-78); TOTAL CELLS COUNTED 100
[2019-12-02 19:19] LABS: PLATELET COMMENT ADEQUATE; RBC MORPHOLOGY COMMENT NORMO-CYTIC/CHROMIC
[2019-12-02 21:29] LABS: APPEARANCE,URINE CLEAR; BILIRUBIN,URINE NEGATIVE (NEGATIVE); COLOR,URINE YELLOW; GLUCOSE, URINE NEGATIVE (NEGATIVE); KETONES,URINE 20 mg/dL (NEGATIVE); LEUKOCYTE ESTERASE,URINE NEGATIVE (NEGATIVE); NITRITE,URINE NEGATIVE (NEGATIVE); PROTEIN,URINE NEGATIVE (NEGATIVE); URINE SPECIFIC GRAVITY 1.013; UROBILINOGEN,URINE NEGATIVE mg/dL (<2.0)
[2019-12-02 21:44] LABS: URINE BARBITURATES SCREEN NEGATIVE; URINE BENZODIAZEPINES SCREEN NEGATIVE; URINE COCAINE SCREEN NEGATIVE; URINE METHADONE SCREEN NEGATIVE; URINE PHENCYCLIDINE SCREEN NEGATIVE
[2019-12-02 21:49] LABS: URINE MARIJUANA (THC) SCREEN UNCONFIRMED POSITIVE
[2019-12-03 01:42] VITALS: BP 117/65
--- NOTE | 2019-12-03 09:17 | EKG REPORT ---
SEVERITY:- OTHERWISE NORMAL ECG - SINUS TACHYCARDIA : Confirmed by: Kary Bravo 03-Dec-2019 09:16:53
== END 2019-12-03 01:53 | disposition home or self-care (01) ==
LOC: ER 16:35
DX: F19.10 Other psychoactive substance abuse, uncomplicated (principal); F12.20 Cannabis dependence, uncomplicated; F11.20 Opioid dependence, uncomplicated; R41.82 Altered mental status, unspecified; F17.200 Nicotine dependence, unspecified, uncomplicated
CPT/HCPCS: 93005; 99285; 96360; 36415; 80307 ×4; 85025; 80053; 81001; 93010; L0120; J7030

== ENCOUNTER 2020-01-16 12:01 | Emergency (ER) | payer SELFPAY ==
--- NOTE | 2020-01-16 12:17 | ER Document Report ---
HPI - HPI Patient complains to provider of: sore throat Time Seen by Provider: 01/16/20 12:09 Onset: Other Onset/Duration: Waxing and waning Context: 29-year-old male presents emergency department with complaints of sore throat. Reports he had a sore throat last week that went away and then came back yesterday. He reports slight cough that started yesterday. Denies fever vomiting diarrhea. Reports he had strep in the summer it feels the same way. No recent strep exposure. Patient reports he is eating drinking voiding bowel movement as normal. Associated Symptoms: None Exacerbated by: Denies Relieved by: Denies Similar symptoms previously: Yes Recently seen / treated by doctor: No - REPRODUCTIVE Reproductive: DENIES: : Past Medical History - General Information source: Patient - Social History Smoking Status: Current Every Day Smoker Cigarette use (# per day): Yes Frequency of alcohol use: None Drug Abuse: Marijuana Occupation: hot dogs Family History: Reviewed & Not Pertinent Patient has suicidal ideation: No Patient has homicidal ideation: No Renal/ Medical History: Denies: Hx Peritoneal Dialysis Psychiatric Medical History: Reports: Hx Depression - Anxiety Past Surgical History: Reports: Hx Orthopedic Surgery - right hand; left knee - Immunizations Immunizations up to date: Yes Hx Diphtheria, Pertussis, Tetanus Vaccination: Yes Vertical Provider Document - CONSTITUTIONAL Agree With Documented VS: Yes Exam Limitations: No Limitations General Appearance: WD/WN, No Apparent Distress - INFECTION CONTROL TRAVEL OUTSIDE OF THE [place] IN LAST 30 DAYS: No - HEENT HEENT: Atraumatic, Normocephalic, PERRLA, Pharyngeal Erythema - Right-sided tonsillar hypertrophy good airway opens mouth wide clear voice no trouble swallowing. No Peritonsillar abscess, no tonsillar exudate. negative: Conjuctival Injection, Pharyngeal Exudate, Tympanic Membrane Red, Tympanic Membrane Bulging - NECK Neck: Normal Inspection, Supple - RESPIRATORY Respiratory: Breath Sounds Normal, No Respiratory Distress. negative: Rales, Rhonchi, Wheezing - CARDIOVASCULAR Cardiovascular: Regular Rate, Regular Rhythm - GI/ABDOMEN Gastrointestinal: Abdomen Soft, Abdomen Non-Tender - MUSCULOSKELETAL/EXTREMETIES Musculoskeletal/Extremeties: HASEEB MELVIN - NEURO Level of Consciousness: Awake, Alert, Appropriate Motor/Sensory: No Motor Deficit - DERM Integumentary: Warm, Dry, No Rash Course - Re-evaluation Re-evalutation: 01/16/20 13:00 Laboratory 01/16/20 12:21 Group A Strep Rapid POSITIVE 01/16/20 13:10 29-year-old male presents emergency department with sore throat. Patient was positive strep. Patient reports allergy to penicillins and azithromycin. He is not sure if he is taking clindamycin in the past. Patient was instructed on signs and symptoms of allergic reaction to clindamycin. Instructed to return immediately for the symptoms. He verbalized understanding to all instructions. - Vital Signs Vital signs: Temp Pulse Resp BP Pulse Ox 98 F 56 L 16 110/66 96 01/16/20 12:07 01/16/20 12:07 01/16/20 12:07 01/16/20 12:07 01/16/20 12:07 Discharge - Discharge Clinical Impression: Sore throat Condition: Stable Disposition: HOME, SELF-CARE Instructions: Clindamycin ([facility]), Sore Throat ([facility]), Strep Throat ([facility]) Additional Instructions: *You have been evaluated for a sore throat, strep *gargle with warm salt water and suck on throat lozenges for comfort *Do not let anyone drink/eat after you, change her toothbrush after 2 days of antibiotics *Good hand washing *Monitor your temperature, take Tylenol or ibuprofen as indicated *Follow-up with a primary care provider within 1 week *Return to ED for worsening condition change, needs, concerns, unable to swallow Prescriptions: Clindamycin HCl 300 mg PO TID #30 capsule Forms: Return to Work
[2020-01-16] MEDS ORDERED: CLINDAMYCIN HCL 150 MG CAPSULE PO ONE (13:11)
[2020-01-16 13:39] VITALS: BP 110/70
== END 2020-01-16 13:36 | disposition home or self-care (01) ==
LOC: ER 12:01
DX: J02.0 Streptococcal pharyngitis (principal); R05 Cough; F17.210 Nicotine dependence, cigarettes, uncomplicated; F12.10 Cannabis abuse, uncomplicated
CPT/HCPCS: 87880; 99283

== ENCOUNTER 2020-03-23 07:01 | Emergency (ER) | payer SELFPAY ==
[2020-03-23] MEDS ORDERED: LIDOCAINE 1% INJ-PF (10 MG/ML) 30 ML SDV INJ ONE (09:03)
--- NOTE | 2020-03-23 09:10 | ER Document Report ---
ED General - General Chief Complaint: Hand Pain Stated Complaint: LEFT RING FINGER PAIN, SWELLING Time Seen by Provider: 03/23/20 08:58 Mode of Arrival: Ambulatory Information source: Patient TRAVEL OUTSIDE OF THE [place] IN LAST 30 DAYS: No - HPI Notes: Patient presents with left ring finger pain. He states he is a heroin user and last used yesterday. He states this look like the sore he gets when he use heroin. He denies any known trauma. No fevers. The pain is constant. Is severe. Is worse with movement and better with rest. It radiates up the left hand and arm. - Related Data Allergies/Adverse Reactions: amoxicillin Allergy (Verified 01/16/20 12:09) azithromycin [From Zithromax] Allergy (Verified 01/16/20 12:09) Penicillins Allergy (Verified 01/16/20 12:09) Past Medical History - General Information source: Patient - Social History Smoking Status: Current Every Day Smoker Frequency of alcohol use: Occasional Drug Abuse: Heroin, Marijuana Family History: Reviewed & Not Pertinent Patient has homicidal ideation: No Renal/ Medical History: Denies: Hx Peritoneal Dialysis Psychiatric Medical History: Reports: Hx Depression - Anxiety Past Surgical History: Reports: Hx Orthopedic Surgery - right hand; left knee - Immunizations Immunizations up to date: Yes Hx Diphtheria, Pertussis, Tetanus Vaccination: Yes Review of Systems - Review of Systems Constitutional: denies: Chills, Fever Cardiovascular: denies: Chest pain, Palpitations Respiratory: denies: Cough, Short of breath -: Yes All other systems reviewed and negative Physical Exam - Vital signs Vitals: Temp Pulse BP Pulse Ox 98.0 F 60 119/73 97 03/23/20 07:06 03/23/20 07:06 03/23/20 07:06 03/23/20 07:06 Interpretation: Normal - General General appearance: Appears well, Alert - HEENT Head: Normocephalic, Atraumatic Eyes: Normal Pupils: PERRL - Respiratory Respiratory status: No respiratory distress Chest status: Nontender Breath sounds: Normal Chest palpation: Normal - Cardiovascular Rhythm: Regular Heart sounds: Normal auscultation Murmur: No - Abdominal Inspection: Normal Distension: No distension Bowel sounds: Normal Tenderness: Nontender Organomegaly: No organomegaly - Back Back: Normal, Nontender - Extremities General upper extremity: Other - Upper extremity exam is unremarkable other than left ring finger. Left ring finger has a abrasion and erythema to the proximal interphalangeal joint on the dorsal surface. It is raised and fluctuant consistent with possible abscess. General lower extremity: Normal inspection, Nontender, Normal color, Normal ROM, Normal temperature, Normal weight bearing. No: Ba's sign - Neurological Neuro grossly intact: Yes Cognition: Normal Orientation: AAOx4 Melissa Coma Scale Eye Opening: Spontaneous Melissa Coma Scale Verbal: Oriented Melissa Coma Scale Motor: Obeys Commands Rhodell Coma Scale Total: 15 Speech: Normal Motor strength normal: LUE, RUE, LLE, RLE Sensory: Normal - Psychological Associated symptoms: Normal affect, Normal mood - Skin Skin Temperature: Warm Skin Moisture: Dry Skin Color: Normal Course - Vital Signs Vital signs: Temp Pulse Resp BP Pulse Ox 98.2 F 60 119/73 97 03/23/20 08:36 03/23/20 07:06 03/23/20 07:06 03/23/20 07:06 - Diagnostic Test Radiology reviewed: Image reviewed, Reports reviewed Procedures - Incision and Drainage Left 4th digit Time completed: 09:30 Type: Simple Anesthetic type: 1% Lidocaine mL's of anesthetic: 1 Blade size: Other - 18 gauge needle I&D procedure: Sterile dressing applied Incision Method: Incision made with needle Amount/type of drainage: blood, 1cc. no pus Discharge - Discharge Clinical Impression: Cellulitis Qualifiers: Site of cellulitis: extremity Site of cellulitis of extremity: finger Laterality: left Qualified Code(s): L03.012 - Cellulitis of left finger Condition: Stable Disposition: HOME, SELF-CARE Instructions: Cellulitis ([facility]) Additional Instructions: Please return to ED in 48 hrs for a recheck of your finger Prescriptions: Sulfamethoxazole/Trimethoprim [Bactrim Ds Tablet] 1 each PO BID 7 Days #14 tablet Forms: Return to Work Referrals: HERMELINDO BORJA MD [ACTIVE PROVISIONAL STAFF] - Follow up in 3-5 days
--- NOTE | 2020-03-23 09:18 | RADIOLOGY REPORT (SQ) ---
EXAM DESCRIPTION: HAND LEFT 3 VIEWS IMAGES COMPLETED DATE/TIME: 03/23/2020 9:00 am REASON FOR STUDY: possbile abscess/infection COMPARISON: None. EXAM PARAMETERS: NUMBER OF VIEWS: Three views. TECHNIQUE: AP, lateral and oblique radiographic images acquired of the left hand. LIMITATIONS: None. FINDINGS: MINERALIZATION: Normal. BONES: No acute fracture or dislocation. No worrisome bone lesions. JOINTS: No effusions. SOFT TISSUES: No soft tissue swelling. No foreign body. OTHER: No other significant finding. IMPRESSION: NEGATIVE STUDY OF THE LEFT HAND. NO RADIOGRAPHIC EVIDENCE OF ACUTE INJURY. TECHNICAL DOCUMENTATION: JOB ID: [id number] 2010 [employer]- All Rights Reserved Reading location - IP/workstation name: [email or web address]
[2020-03-23 09:55] VITALS: BP 128/77
== END 2020-03-23 09:55 | disposition home or self-care (01) ==
LOC: ER 07:01
PROC: 0H9QXZZ Drainage of Finger Nail, External Approach (ICD-10-PCS; principal; 2020-03-23)
DX: L03.012 Cellulitis of left finger (principal); L02.512 Cutaneous abscess of left hand; M79.645 Pain in left finger(s); M79.89 Other specified soft tissue disorders; F11.90 Opioid use, unspecified, uncomplicated; Z88.1 Allergy status to other antibiotic agents; Z88.0 Allergy status to penicillin; F17.200 Nicotine dependence, unspecified, uncomplicated
CPT/HCPCS: 99283; 73130; 10060; J3490

== ENCOUNTER 2020-03-25 18:31 | Emergency (ER) | payer SELFPAY ==
[2020-03-25 18:56] VITALS: BP 147/76
== END 2020-03-25 19:30 | disposition left against medical advice (07) ==
LOC: ER 18:31
DX: Z53.21 Procedure and treatment not carried out due to patient leaving prior to being seen by health care provider (principal)

== ENCOUNTER 2020-03-26 13:48 | Emergency (ER) | payer SELFPAY ==
[2020-03-26] MEDS ORDERED: NORMAL SALINE 1000 ML 1,000 ML IV ONE (14:30)
[2020-03-26] MEDS ORDERED: ONDANSETRON HCL INJ/PF 4 MG/2 ML SDV IV ONE (14:30)
--- NOTE | 2020-03-26 14:35 | ER Document Report ---
ED General - General Stated Complaint: SKIN PROBLEM Time Seen by Provider: 03/26/20 14:30 Mode of Arrival: Ambulatory Information source: Patient, [facility] Records Notes: Patient is a 29-year-old male presenting to the emergency department chief complaint of swelling to the face. Patient reports that he has a IV drug abuser and has had multiple abscesses and several blood-borne infections in the past. He states that he was seen a couple days ago for an abscess to his finger which was I&D and he was prescribed antibiotics but did not pick them up. Patient reports his face was swollen last evening and he started picking at it and this seemed to make it worse. Patient reports purulent discharge from the largest of the sites which is to the lateral aspect of his right upper eyebrow region. Patient denies travel history trauma history. Patient denies nausea vomiting diarrhea cough or cold symptoms. TRAVEL OUTSIDE OF THE [place] IN LAST 30 DAYS: No - HPI Onset: Yesterday Onset/Duration: Persistent Quality of pain: Burning Severity: Mild Pain Level: 1 Associated symptoms: None Exacerbated by: Movement Relieved by: Denies Similar symptoms previously: No Recently seen / treated by doctor: Yes - Related Data Allergies/Adverse Reactions: amoxicillin Allergy (Verified 01/16/20 12:09) azithromycin [From Zithromax] Allergy (Verified 01/16/20 12:09) Penicillins Allergy (Verified 01/16/20 12:09) Past Medical History - General Information source: Patient, [facility] Records - Social History Smoking Status: Current Some Day Smoker Cigarette use (# per day): Yes Chew tobacco use (# tins/day): No Smoking Education Provided: Yes Frequency of alcohol use: None Drug Abuse: Heroin, Marijuana, Methamphetamine Lives with: Friend Family History: Reviewed & Not Pertinent Patient has suicidal ideation: No Patient has homicidal ideation: No Renal/ Medical History: Denies: Hx Peritoneal Dialysis Psychiatric Medical History: Reports: Hx Depression - Anxiety Past Surgical History: Reports: Hx Orthopedic Surgery - right hand; left knee - Immunizations Immunizations up to date: Yes Hx Diphtheria, Pertussis, Tetanus Vaccination: Yes Review of Systems - Review of Systems Notes: REVIEW OF SYSTEMS: CONSTITUTIONAL : Denies fever, chills, or sweats. Denies recent illness. EENT: Denies eye, ear, throat, or mouth pain or symptoms. Denies nasal or sinus congestion. CARDIOVASCULAR: Denies chest pain. RESPIRATORY: Denies cough, cold, or chest congestion. Denies shortness of breath, difficulty breathing, or wheezing. GASTROINTESTINAL: Denies abdominal pain. Denies nausea, vomiting, or diarrhea. Denies constipation. GENITOURINARY: Denies difficulty urinating, painful urination, burning, frequency, or blood in urine. MUSCULOSKELETAL: Denies neck or back pain or joint pain or swelling. SKIN: Per HPI HEMATOLOGIC : Denies easy bruising or bleeding. NEUROLOGICAL: Denies altered mental status or loss of consciousness. Denies headache. Denies weakness or paralysis or loss of use of either side. Denies problems with gait or speech. Denies sensory or motor loss. PSYCHIATRIC: Denies suicidal or homicidal ideations 10 Systems are negative unless otherwise specified above Physical Exam - Vital signs Vitals: Temp Pulse Resp BP Pulse Ox 98.3 F 103 H 16 135/82 H 99 03/26/20 13:48 03/26/20 13:48 03/26/20 13:48 03/26/20 13:48 03/26/20 13:48 - Notes Notes: PHYSICAL EXAMINATION: GENERAL: Well-appearing, well-nourished and in no acute distress. HEAD: Atraumatic, normocephalic. EYES: Pupils equal round and reactive to light, extraocular movements intact, sclera anicteric, conjunctiva are normal. ENT: nares patent, oropharynx clear without exudates. Moist mucous membranes. NECK: Normal range of motion, supple without lymphadenopathy, no appreciable JVD LUNGS: Lungs clear to auscultation bilaterally and equal. No wheezes rales or rhonchi. HEART: slightly tachycardic rhythm without murmurs ABDOMEN: Soft, nontender, normal bowel sounds. No guarding, no rebound. No masses appreciated. EXTREMITIES: Active full range of motion, no pitting or edema. No cyanosis. 2+ pulses x4 NEUROLOGICAL: No focal neurological deficits. Moves all extremities spontaneou sly and on command. SKIN: Patient has swelling to the lateral aspect the upper and lower eyelid on the right. Patient has multiple facial abscesses in various stages of healing. Abscess to the finger is erythematous but patient has full range of motion and states it looks better than it did the other day. Course - Re-evaluation Re-evalutation: 03/26/20 16:34 I discussed the radiologic findings with the patient and advised him that he needs to get the prescription filled that he was already given because it is the same medication that we will treat his rash and superficial abscesses. Patient should follow-up with her primary care provider. Patient did report that he abuses drugs and I recommend stopping all recreational drug use. - Vital Signs Vital signs: Temp Pulse Resp BP Pulse Ox 98.3 F 103 H 16 135/82 H 99 03/26/20 13:48 03/26/20 13:48 03/26/20 13:48 03/26/20 13:48 03/26/20 13:48 - Laboratory Result Diagrams: 03/26/20 14:29 03/26/20 15:35 Laboratory results interpreted by me: 03/26/20 14:29 WBC 16.1 H RBC 4.24 L Hgb 12.5 L Hct 36.6 L Lymph % (Auto) 12.4 L Absolute Neuts (auto) 12.4 H - Diagnostic Test Radiology reviewed: Reports reviewed Discharge - Discharge Clinical Impression: Cellulitis and abscess of face, Polysubstance abuse, Medical non-compliance Condition: Stable Disposition: HOME, SELF-CARE Instructions: MRSA Cellulitis ([facility])
[2020-03-26 15:43] VITALS: BP 135/82
[2020-03-26 15:53] LABS: ABSOLUTE BASOPHILS # (AUTO) 0.1 10^3/uL (0.0-0.2); ABSOLUTE EOSINOPHILS # (AUTO) 0.3 10^3/uL (0.0-0.6); ABSOLUTE MONOCYTES (AUTO) 1.3 10^3/uL (0.1-1.4); ABSOLUTE NEUT (AUTO) 12.4 10^3/uL (1.7-8.2); BASOPHILS % (AUTO) 0.7 % (0-2); HEMATOCRIT 36.6 % (37.9-51.0); HEMOGLOBIN 12.5 g/dL (13.5-17.0); LYMPHOCYTES % (AUTO) 12.4 % (13-45); MEAN CORPUSCULAR HEMOGLOBIN 29.6 pg (27.0-33.4); MEAN CORPUSCULAR HGB CONC 34.2 g/dL (32.0-36.0); MEAN CORPUSCULAR VOLUME 87 fl (80-97); MONOCYTES % (AUTO) 7.9 % (3-13); PLATELET COUNT 261 10^3/uL (150-450); RED BLOOD COUNT 4.24 10^6/uL (4.35-5.55); TOTAL CELLS COUNTED % (AUTO) 100 %; WHITE BLOOD COUNT 16.1 10^3/uL (4.0-10.5)
--- NOTE | 2020-03-26 15:53 | RADIOLOGY REPORT (SQ) ---
EXAM DESCRIPTION: CT FACIAL AREA WITHOUT IMAGES COMPLETED DATE/TIME: 03/26/2020 3:10 pm REASON FOR STUDY: swelling COMPARISON: None. TECHNIQUE: Noncontrasted images through the facial bones and orbits windowed for bone and soft tissu e. Additional coronal and sagittal reconstructed images reviewed. All images stored on PACS. All CT scanners at this facility use dose modulation, iterative reconstruction, and/or weight based d osing when appropriate to reduce radiation dose to as low as reasonably achievable (ALARA). [facility]: Dose Right [facility]: CareDose [facility]: Dose Right [facility]: Teradose 4D [facility]: [employer] RADIATION DOSE: CT Rad equipment meets quality standard of care and radiation dose reduction techniq ues were employed. CTDIvol: 30.4 mGy. DLP: 667 mGy-cm. mGy. LIMITATIONS: None. FINDINGS: FACIAL BONES: No fracture or bone lesion. ORBITS: Intact. No fracture. Symmetric intact globes and retroorbital soft tissues. PARANASAL SINUSES: Mild mucous membrane thickening. No fluid levels. Deviated nasal septum. SOFT TISSUES: Generalized soft tissue swelling overlying the right orbit and right temporal region. INFERIOR BRAIN: Limited view. No acute findings. OTHER: No other significant finding. IMPRESSION: 1. GENERALIZED SOFT TISSUE SWELLING OVERLYING THE RIGHT ORBIT AND RIGHT TEMPORAL REGION. NO UNDERLYI NG BONY FINDINGS. NO FINDINGS CONCERNING FOR ABSCESS. 2. MILD DIFFUSE CHRONIC SINUS DISEASE. TECHNICAL DOCUMENTATION: JOB ID: [id number] Quality ID # [id number]: Final reports with documentation of one or more dose reduction techniques (e.g., Au tomated exposure control, adjustment of the mA and/or kV according to patient size, use of iterative reconstruction technique) 2010 [employer]- All Rights Reserved Reading location - IP/workstation name: [email or web address]
[2020-03-26] MEDS ORDERED: LEVOFLOXACIN 750 MG TABLET PO ONE (15:55)
== END 2020-03-26 16:45 | disposition home or self-care (01) ==
LOC: ER 13:48
DX: L02.01 Cutaneous abscess of face (principal); L03.211 Cellulitis of face; L02.519 Cutaneous abscess of unspecified hand; T36.96XA Underdosing of unspecified systemic antibiotic, initial encounter; Z91.128 Patient's intentional underdosing of medication regimen for other reason; Z91.14 Patient's other noncompliance with medication regimen; F11.10 Opioid abuse, uncomplicated; F12.10 Cannabis abuse, uncomplicated; F15.10 Other stimulant abuse, uncomplicated; F17.210 Nicotine dependence, cigarettes, uncomplicated; Z98.890 Other specified postprocedural states; Z88.0 Allergy status to penicillin; Z88.1 Allergy status to other antibiotic agents
CPT/HCPCS: 99284; 96374; 36415; 87040; 85025; 70486; J2405; J7030

== ENCOUNTER 2020-04-12 07:27 | Emergency (ER) | payer SELFPAY ==
[2020-04-12 07:35] VITALS: BP 169/90
== END 2020-04-12 08:59 | disposition left against medical advice (07) ==
LOC: ER 07:27
DX: Z53.21 Procedure and treatment not carried out due to patient leaving prior to being seen by health care provider (principal)

== ENCOUNTER 2020-05-21 09:02 | Inpatient (IN) | payer SELFPAY ==
[2020-05-21] MEDS ORDERED: VANCOMYCIN HCL INJ 1000 MG VIAL IV ONE (10:50)
[2020-05-21] MEDS ORDERED: NORMAL SALINE 1000 ML 1,000 ML IV ONE (10:50)
--- NOTE | 2020-05-21 11:28 | RADIOLOGY REPORT (SQ) ---
EXAM DESCRIPTION: FOOT LEFT COMPLETE IMAGES COMPLETED DATE/TIME: 05/21/2020 11:03 am REASON FOR STUDY: Eval osteomylitis; IVDA COMPARISON: None. NUMBER OF VIEWS: Three views. TECHNIQUE: AP, lateral and oblique radiographic images acquired of the left foot. LIMITATIONS: None. FINDINGS: MINERALIZATION: Normal. BONES: No acute fracture or dislocation. No worrisome bone lesions. JOINTS: No effusions. SOFT TISSUES: No soft tissue swelling. No foreign body. OTHER: No other significant finding. IMPRESSION: NEGATIVE STUDY OF THE LEFT FOOT. NO RADIOGRAPHIC EVIDENCE OF ACUTE INJURY. NO EVIDENCE FOR OSTEOMYELITIS. TECHNICAL DOCUMENTATION: JOB ID: [id number] 2010 [employer]- All Rights Reserved Reading location - IP/workstation name: [email or web address]
--- NOTE | 2020-05-21 11:38 | ER Document Report ---
ED Extremity Problem, Lower - General Chief Complaint: Foot Pain Stated Complaint: FOOT SWEELING Time Seen by Provider: 05/21/20 09:31 Notes: Patient is 29-year-old male who presents emergency department with the chief complaint of left foot pain. Patient states that he has had pain to his foot for the past 3 days. He states that he was camping and his foot was itchy and was scratching it. Patient admits to current IV drug use of heroin and cocaine. States he has not shot up in his foot. Patient has history of sepsis in the past. TRAVEL OUTSIDE OF THE [place] IN LAST 30 DAYS: No - Related Data Allergies/Adverse Reactions: amoxicillin Allergy (Verified 05/21/20 09:54) azithromycin [From Zithromax] Allergy (Verified 05/21/20 09:54) Penicillins Allergy (Verified 05/21/20 09:54) Past Medical History - General Information source: Patient - Social History Smoking Status: Current Every Day Smoker Drug Abuse: Cocaine, Heroin Family History: Reviewed & Not Pertinent Patient has homicidal ideation: No Renal/ Medical History: Denies: Hx Peritoneal Dialysis Psychiatric Medical History: Reports: Hx Depression - Anxiety Past Surgical History: Reports: Hx Orthopedic Surgery - right hand; left knee - Immunizations Immunizations up to date: Yes Hx Diphtheria, Pertussis, Tetanus Vaccination: Yes Review of Systems - Review of Systems Notes: REVIEW OF SYSTEMS: CONSTITUTIONAL : Denies recent illness. Denies recent unintentional weight loss. Denies fever, chills, or sweats. EENT: Denies eye, ear, throat, or mouth pain, discharge, or symptoms. Denies nasal or sinus congestion. CARDIOVASCULAR: Denies chest pain. RESPIRATORY: Denies shortness of breath, cough, congestion, difficulty breathing, or wheezing. GASTROINTESTINAL: Denies nausea, vomiting, and diarrhea. Denies abdominal pain. Denies constipation. GENITOURINARY: Denies difficulty urinating, burning, blood in urine, urgency or frequency. MUSCULOSKELETAL: Denies neck and back pain. Denies joint pain or swelling. SKIN: See HPI. HEMATOLOGIC : Denies easy bruising or bleeding. LYMPHATIC: Denies swollen, painful, enlarged glands. NEUROLOGICAL: Denies no numbness or tingling denies weakness. Denies headache. Denies altered mental status. Denies alteration in speech. PSYCHIATRIC: Denies stress, anxiety, alteration in sleep patterns, or depression. All other systems reviewed and negative. Physical Exam - Vital signs Vitals: Temp Pulse Resp BP Pulse Ox 98.6 F 81 16 119/64 100 05/21/20 09:55 05/21/20 09:55 05/21/20 09:55 05/21/20 09:55 05/21/20 09:55 - Notes Notes: PHYSICAL EXAMINATION: GENERAL: Appears well, healthy, well-nourished, no acute distress. HEAD: Normocephalic, atraumatic. EYES: PERRL, conjunctiva normal, all extraocular movements intact, sclera nonicteric ENT: Moist mucous membranes. NECK: Supple, no noticeable swelling, redness, rash. Normal range of motion. LUNGS: Equal breath sounds bilaterally and clear to auscultation. No wheezes rales or rhonchi. CARDIOVASCULAR: S1-S2, regular rate, regular rhythm. Radial pulses 2+, normal. Dorsalis pedis pulses 2+. ABDOMEN: Normoactive bowel sounds. Soft, nontender, no guarding, no rebound tenderness, and no masses palpated. EXTREMITIES: Normal strength and range of motion. Edema noted to left lower extremity. NEUROLOGICAL: Moves all extremities upon command. Strength 5/5 in all extremities. PSYCH: Normal mood, normal affect. SKIN: Warm, dry. Erythematous left foot with possible injection site areas. Appears that he may have been abscesses that most likely drained. Course - Re-evaluation Re-evalutation: 05/21/20 13:21 Hematology is unremarkable. No leukocytosis noted. Hemoglobin and hematocrit are stable. Chemistries are unremarkable. Lactic acid is unremarkable. I spoke with Dr. Leija the surgeon customer solutions architect. He states that he will evaluate the patient. He needs to go to a surgery and then when he is done he will see the patient. Updated the patient on plan of care. X-ray does not appear to show osteomyelitis. 05/21/20 14:26 I was able to speak with Dr. Simpson, but he is unable to evaluate the patient because he is unable to evaluate the patient due to emergency surgeries. We will send the patient for a CT of the lower extremity. 05/21/20 15:35 CT does not show any abscesses. I spoke with Dr. Zavala, the hospitalist. Patient will be admitted for IV antibiotics to the medical floor. - Vital Signs Vital signs: Temp Pulse Resp BP Pulse Ox 97.4 F 75 17 122/59 L 100 05/21/20 20:11 05/21/20 20:11 05/21/20 20:11 05/21/20 20:11 05/21/20 20:11 - Laboratory Result Diagrams: 05/21/20 10:50 05/21/20 10:50 Laboratory results interpreted by me: 05/21/20 05/21/20 05/21/20 10:50 10:50 10:50 RBC 4.30 L Hgb 12.1 L Hct 35.4 L Carbon Dioxide 31 H Lactic Acid 0.6 L Total Protein 8.4 H Discharge - Discharge Clinical Impression: IV drug abuse Cellulitis Qualifiers: Site of cellulitis: extremity Site of cellulitis of extremity: lower extremity Laterality: left Qualified Code(s): L03.116 - Cellulitis of left lower limb Condition: Stable Disposition: ADMITTED INPATIENT Admitting Provider: Matias (Hospitalist) Unit Admitted: Medical Floor
[2020-05-21 11:44] LABS: ABSOLUTE BASOPHILS # (AUTO) 0.1 10^3/uL (0.0-0.2); ABSOLUTE EOSINOPHILS # (AUTO) 0.3 10^3/uL (0.0-0.6); ABSOLUTE LYMPHOCYTES (AUTO) 1.8 10^3/uL (0.5-4.7); ABSOLUTE MONOCYTES (AUTO) 0.6 10^3/uL (0.1-1.4); BASOPHILS % (AUTO) 0.7 % (0-2); EOSINOPHILS % (AUTO) 3.7 % (0-6); HEMATOCRIT 35.4 % (37.9-51.0); HEMOGLOBIN 12.1 g/dL (13.5-17.0); LYMPHOCYTES % (AUTO) 20.8 % (13-45); MEAN CORPUSCULAR HEMOGLOBIN 28.2 pg (27.0-33.4); MEAN CORPUSCULAR HGB CONC 34.2 g/dL (32.0-36.0); MEAN CORPUSCULAR VOLUME 82 fl (80-97); PLATELET COUNT 317 10^3/uL (150-450); SEGMENTED NEUTROPHILS % (AUTO) 67.8 % (42-78); TOTAL CELLS COUNTED % (AUTO) 100 %; WHITE BLOOD COUNT 8.9 10^3/uL (4.0-10.5)
[2020-05-21 12:04] LABS: ALBUMIN 4.5 g/dL (3.5-5.0); ALKALINE PHOSPHATASE 89 U/L (38-126); ANION GAP 8 (5-19); ASPARTATE AMINO TRANSFERASE 25 U/L (17-59); BILIRUBIN,TOTAL 0.4 mg/dL (0.2-1.3); BLOOD UREA NITROGEN 16 mg/dL (7-20); CALCIUM 9.8 mg/dL (8.4-10.2); CARBON DIOXIDE 31 mmol/L (22-30); CHLORIDE 99 mmol/L (98-107); GLUCOSE 108 mg/dL (75-110); POTASSIUM 4.6 mmol/L (3.6-5.0); TOTAL PROTEIN 8.4 g/dL (6.3-8.2)
[2020-05-21] MEDS ORDERED: KETOROLAC TROMETHAMINE INJ/PF 30 MG/1 ML SDV IV ONE (13:52)
--- NOTE | 2020-05-21 15:22 | RADIOLOGY REPORT (SQ) ---
EXAM DESCRIPTION: CT LEFT LOWER EXTREMITY WITH IMAGES COMPLETED DATE/TIME: 05/21/2020 2:33 pm REASON FOR STUDY: eval abcesses? COMPARISON: Plain radiograph TECHNIQUE: Postcontrast axial imaging performed through the left mid calf to foot with reformatted c oronal and sagittal imaging windowed for bone and soft tissues. Images saved to PACS. 3D IMAGING: Were 3D images as MIP, SSD, or volume rendering performed at the work station? No All CT scanners at this facility use dose modulation, iterative reconstruction, and/or weight based d osing when appropriate to reduce radiation dose to as low as reasonably achievable (ALARA). [facility]: Dose Right [facility]: CareDose [facility]: Dose Right [facility]: Teradose 4D [facility]: [employer] CONTRAST TYPE AND DOSE: contrast/concentration: Isovue 350.00 mmol/ml; Total Contrast Delivered: 49. 0 ml; Total Saline Delivered: 77.0 ml RENAL FUNCTION: None required. The patient is less than 50 years old. LIMITATIONS: CT is of very limited value for soft tissue findings. RADIATION DOSE: CT Rad equipment meets quality standard of care and radiation dose reduction techniq ues were employed. CTDIvol: 4.1 mGy. DLP: 254 mGy-cm.mGy. FINDINGS: SOFT TISSUES: Generalized subcutaneous edema mid through the foot. Individual abscesses a re not identified although would not be expected to be seen on CT. BONES: No findings to suggest osteomyelitis. MINERALIZATION: Normal. ENHANCEMENT: No abnormal enhancement. OTHER: No other significant finding. IMPRESSION: Generalized subcutaneous edema. No obvious localized fluid collection although CT is li mited for such evaluation. No obvious osteomyelitis. COMMENT: If there is focal area of concern, consider local ultrasound of the soft tissues. MRI with contrast is also more sensitive for soft tissue abscess. TECHNICAL DOCUMENTATION: JOB ID: [id number] Quality ID # [id number]: Final reports with documentation of one or more dose reduction techniques (e.g., Au tomated exposure control, adjustment of the mA and/or kV according to patient size, use of iterative reconstruction technique) 2010 [employer]- All Rights Reserved Reading location - IP/workstation name: [email or web address]
[2020-05-21] MEDS ORDERED: ONDANSETRON HCL INJ/PF 4 MG/2 ML SDV IV PRN (16:01)
[2020-05-21] MEDS ORDERED: ACETAMINOPHEN 325 MG TABLET PO PRN (16:01)
--- NOTE | 2020-05-21 16:16 | PDOC H&P ---
History of Present Illness Admission Date/PCP: 05/21/20 15:49 Patient complains of: Left foot swelling History of Present Illness: TONY HUTSON is a 29 year old male with history of IV drug abuse uses heroin cocaine, oxycodone, smokes marijuana, chronic smoker came to the emergency room with complaints of 3 days history of left foot swelling and pain. As per him it started as a scratch after poison curt exposure then started swelling with increasing pain and redness. He adamantly denies shooting IV needles in the left foot. Decided to came to the emergency room for further evaluation denies any fever complains of chills. He admitted to using heroin, cocaine on regular basis. Also smokes., Chronic smoker. Denies any other medical problems. Denies any history of endocarditis. Past Medical History Cardiac Medical History: Reports: None Pulmonary Medical History: Reports: None EENT Medical History: Reports: None Neurological Medical History: Reports: None Endocrine Medical History: Reports: None Renal/ Medical History: Reports: None Malignancy Medical History: Reports: None GI Medical History: Reports: None Psychiatric Medical History: Reports: None, Depression - Anxiety Hematology: Reports: None Past Surgical History Past Surgical History: Reports: Orthopedic Surgery - right hand; left knee Social History Smoking Status: Current Every Day Smoker Electronic Cigarette use?: No Frequency of Alcohol Use: Social Hx Recreational Drug Use: Yes - Patient states "forever ago" Drugs: Cocaine, Heroin, Marijuana - Advance Directive Resuscitation Status: Full Code Family History Family History: Reviewed & Not Pertinent Parental Family History Reviewed: Yes - Hypertension and heart disease Children Family History Reviewed: Yes Sibling(s) Family History Reviewed.: Yes Medication/Allergy Home Medications: Clindamycin HCl 300 mg PO TID #30 capsule 01/16/20 Sulfamethoxazole/Trimethoprim [Bactrim Ds Tablet] 1 each PO BID 7 Days #14 tablet 03/23/20 Allergies/Adverse Reactions: amoxicillin Allergy (Verified 05/21/20 09:54) azithromycin [From Zithromax] Allergy (Verified 05/21/20 09:54) Penicillins Allergy (Verified 05/21/20 09:54) Review of Systems Constitutional: PRESENT: chills. ABSENT: fatigue, fever(s), weakness Eyes: ABSENT: visual disturbances Ears: ABSENT: hearing changes Nose, Mouth, and Throat: ABSENT: sore throat Cardiovascular: ABSENT: orthropnea Respiratory: ABSENT: dyspnea, hemoptysis Gastrointestinal: ABSENT: coffee ground emesis, diarrhea, dysphagia, heartburn Genitourinary: ABSENT: dysuria, hematuria Integumentary: ABSENT: rash, wounds Neurological: ABSENT: abnormal gait, abnormal speech, confusion, dizziness, focal weakness, syncope Psychiatric: ABSENT: anxiety, depression, homidical ideation, suicidal ideation Endocrine: ABSENT: cold intolerance, heat intolerance, polydipsia, polyuria Physical Exam Vital Signs: Temp Pulse Resp BP Pulse Ox 98.6 F 81 16 119/64 100 05/21/20 09:55 05/21/20 09:55 05/21/20 09:55 05/21/20 09:55 05/21/20 09:55 Intake & Output 05/20/20 05/21/20 05/22/20 06:59 06:59 06:59 Intake Total 1000 Balance 1000 Weight 78.018 kg General appearance: PRESENT: no acute distress Head exam: PRESENT: atraumatic Eye exam: PRESENT: PERRLA Ear exam: PRESENT: normal external ear exam Mouth exam: PRESENT: moist, tongue midline Teeth exam: PRESENT: poor dentation Neck exam: ABSENT: carotid bruit, JVD, lymphadenopathy, thyromegaly Respiratory exam: PRESENT: clear to auscultation kenyatta. ABSENT: rales, rhonchi, wheezes Cardiovascular exam: PRESENT: RRR. ABSENT: diastolic murmur, rubs, systolic murmur Pulses: PRESENT: normal dorsalis pedis pul GI/Abdominal exam: PRESENT: normal bowel sounds, soft. ABSENT: distended, guarding, mass, organolmegaly, rebound, tenderness Rectal exam: PRESENT: deferred Extremities exam: PRESENT: other - Left foot swelling redness with open wound present on the dorsum of the left foot. Neurological exam: PRESENT: alert, awake, oriented to person, oriented to place, oriented to time, oriented to situation, CN II-XII grossly intact. ABSENT: motor sensory deficit Psychiatric exam: PRESENT: appropriate affect, normal mood. ABSENT: homicidal ideation, suicidal ideation Skin exam: PRESENT: dry, intact, warm. ABSENT: cyanosis, rash Results Laboratory Results: 05/21/20 10:50 05/21/20 10:50 05/21/20 05/21/20 05/21/20 10:50 10:50 10:50 WBC 8.9 RBC 4.30 L Hgb 12.1 L Hct 35.4 L MCV 82 MCH 28.2 MCHC 34.2 RDW 13.0 Plt Count 317 Seg Neutrophils % 67.8 Sodium 137.6 Potassium 4.6 Chloride 99 Carbon Dioxide 31 H Anion Gap 8 BUN 16 Creatinine 0.75 Est GFR ( Amer) > 60 Glucose 108 Lactic Acid 0.6 L Calcium 9.8 Total Bilirubin 0.4 AST 25 Alkaline Phosphatase 89 Total Protein 8.4 H Albumin 4.5 Impressions: Foot X-Ray 05/21/20 10:49 IMPRESSION: NEGATIVE STUDY OF THE LEFT FOOT. NO RADIOGRAPHIC EVIDENCE OF ACUTE INJURY. NO EVIDENCE FOR OSTEOMYELITIS. Lower Extremity CT 05/21/20 13:50 IMPRESSION: Generalized subcutaneous edema. No obvious localized fluid collection although CT is limited for such evaluation. No obvious osteomyelitis. Assessment and Plan - Diagnosis (1) Cellulitis Qualifiers: Site of cellulitis: extremity Site of cellulitis of extremity: lower extremity Laterality: left Qualified Code(s): L03.116 - Cellulitis of left lower limb Is this a current diagnosis for this admission?: Yes Plan: 05/21/2020-patient is good to be admitted to medical floor, without telemetry as an inpatient. To start him on IV vancomycin, clindamycin GI prophylaxis DVT prophylaxis initiated. Started on a Dilaudid 1 mg IV every 8 as needed for pain. Consultation with Dr. Yang will be requested. Blood cultures are pending. xray/CT did not suggestive of osteomyelitis. (2) IV drug abuse Is this a current diagnosis for this admission?: No Plan: 05/21/2020-patient has history of IV drug abuse including heroin and cocaine. Psych consult will be requested. (3) Tobacco abuse Is this a current diagnosis for this admission?: No Plan: 05/21/2020-patient is a chronic daily day smoker smoking counseling was provided. To place him on nicotine patches. - Time Anticipated discharge: Home Within: Other - 4-5 days
--- NOTE | 2020-05-21 17:25 | RADIOLOGY REPORT (SQ) ---
EXAM DESCRIPTION: CHEST SINGLE VIEW IMAGES COMPLETED DATE/TIME: 05/21/2020 5:07 pm REASON FOR STUDY: iv drug use COMPARISON: 11/03/2018 NUMBER OF VIEWS: One view. TECHNIQUE: Single frontal radiographic view of the chest acquired. LIMITATIONS: None. FINDINGS: LUNGS AND PLEURA: No opacities, masses or pneumothorax. No pleural effusion. MEDIASTINUM AND HILAR STRUCTURES: No masses. Contour normal. HEART AND VASCULAR STRUCTURES: Heart normal in size. Normal vasculature. BONES: No acute findings. HARDWARE: None in the chest. OTHER: No other significant finding. IMPRESSION: NO SIGNIFICANT RADIOGRAPHIC FINDING IN THE CHEST. TECHNICAL DOCUMENTATION: JOB ID: [id number] [email or web address]- All Rights Reserved Reading location - IP/workstation name: [email or web address]
[2020-05-21 17:54] LABS: URINE BARBITURATES SCREEN NEGATIVE; URINE BENZODIAZEPINES SCREEN NEGATIVE; URINE COCAINE SCREEN UNCONFIRMED POSITIVE; URINE MARIJUANA (THC) SCREEN NEGATIVE; URINE METHADONE SCREEN NEGATIVE; URINE PHENCYCLIDINE SCREEN NEGATIVE
[2020-05-21] MEDS ORDERED: VANCOMYCIN HCL INJ 1000 MG VIAL IV SCH (18:00)
[2020-05-21] MEDS: NORMAL SALINE 1000 ML 1,000 ML IV PRN (19:24)
[2020-05-21] MEDS: CLINDAMYCIN 600 MG/D5W RTU 600 MG/50 ML RTUPB IV SCH (19:25)
[2020-05-21] MEDS: HYDROMORPHONE HCL INJ/PF 2 MG/ML AMPULE IV PRN (19:32)
--- NOTE | 2020-05-21 20:47 | PDOC CONSULTATION ---
Consultation Consult Date: 05/21/20 Provider Consulted: OSBALDO MANZO Consult reason:: Cellulitis left foot History of Present Illness Admission Date/PCP: 05/21/20 15:49 History of Present Illness: TONY HUTSON is a 29 year old male who is an IV heroin addict claims he had poison curt on the left foot about 5 days ago and started getting red and painful and swollen in the past 3 days. He had a CT scan of the foot in the ED which showed no abscess. Claims he shoots heroin daily but not on his left foot. Past Medical History Cardiac Medical History: Reports: None Pulmonary Medical History: Reports: None EENT Medical History: Reports: None Neurological Medical History: Reports: None Endocrine Medical History: Reports: None Renal/ Medical History: Reports: None Malignancy Medical History: Reports: None GI Medical History: Reports: None Psychiatric Medical History: Reports: None, Depression - Anxiety Hematology: Reports: None Past Surgical History Past Surgical History: Reports: Orthopedic Surgery - right hand; left knee Social History Smoking Status: Current Every Day Smoker Cigarettes Packs Per Day: 0.5 Electronic Cigarette use?: No Number of Years Smokin Last Time Smoked: TODAY Frequency of Alcohol Use: None Hx Recreational Drug Use: Yes Drugs: Cocaine, Heroin, Methadone, Other Hx Prescription Drug Abuse: Yes - Advance Directive Resuscitation Status: Full Code Family History Family History: Reviewed & Not Pertinent Parental Family History Reviewed: Yes Children Family History Reviewed: No Sibling(s) Family History Reviewed.: No Medication/Allergy Home Medications: Clindamycin HCl 300 mg PO TID #30 capsule 01/16/20 Sulfamethoxazole/Trimethoprim [Bactrim Ds Tablet] 1 each PO BID 7 Days #14 tablet 03/23/20 Allergies/Adverse Reactions: amoxicillin Allergy (Verified 05/21/20 09:54) azithromycin [From Zithromax] Allergy (Verified 05/21/20 09:54) Penicillins Allergy (Verified 05/21/20 09:54) Review of Systems Constitutional: PRESENT: other - Denies fever no chills Musculoskeletal: PRESENT: other - Pain to left foot Physical Exam Vital Signs: Temp Pulse Resp BP Pulse Ox 98.3 F 89 12 125/73 100 05/21/20 18:00 05/21/20 18:00 05/21/20 18:00 05/21/20 18:00 05/21/20 18:00 Intake & Output 05/20/20 05/21/20 05/22/20 06:59 06:59 06:59 Intake Total 1000 Balance 1000 Weight 78.018 kg General appearance: PRESENT: mild distress Musculoskeletal exam: PRESENT: other - Left foot swollen and red and tender. Difficult to palpate ankle pulses because of the swelling. There is some possible injection sites. Results Laboratory Results: 05/21/20 10:50 05/21/20 10:50 05/21/20 05/21/20 05/21/20 10:50 10:50 10:50 WBC 8.9 RBC 4.30 L Hgb 12.1 L Hct 35.4 L MCV 82 MCH 28.2 MCHC 34.2 RDW 13.0 Plt Count 317 Seg Neutrophils % 67.8 Sodium 137.6 Potassium 4.6 Chloride 99 Carbon Dioxide 31 H Anion Gap 8 BUN 16 Creatinine 0.75 Est GFR ( Amer) > 60 Glucose 108 Lactic Acid 0.6 L Calcium 9.8 Total Bilirubin 0.4 AST 25 Alkaline Phosphatase 89 Total Protein 8.4 H Albumin 4.5 Impressions: Foot X-Ray 05/21/20 10:49 IMPRESSION: NEGATIVE STUDY OF THE LEFT FOOT. NO RADIOGRAPHIC EVIDENCE OF ACUTE INJURY. NO EVIDENCE FOR OSTEOMYELITIS. Lower Extremity CT 05/21/20 13:50 IMPRESSION: Generalized subcutaneous edema. No obvious localized fluid collection although CT is limited for such evaluation. No obvious osteomyelitis. Chest X-Ray 05/21/20 16:05 IMPRESSION: NO SIGNIFICANT RADIOGRAPHIC FINDING IN THE CHEST. Assessment & Plan - Diagnosis (1) Cellulitis Qualifiers: Site of cellulitis: extremity Site of cellulitis of extremity: lower extremity Laterality: left Qualified Code(s): L03.116 - Cellulitis of left lower limb Is this a current diagnosis for this admission?: Yes (2) IV drug abuse Is this a current diagnosis for this admission?: Yes (3) Tobacco abuse Is this a current diagnosis for this admission?: Yes - Time Time Spent: 30 to 50 Minutes - Inpatient Certification Medical Necessity: Need for IV Antibiotics - Plan Summary Plan Summary: 29-year-old male known IV drug abuse. Denies any injection to the left foot. He claims that he had poison curt in the left foot about 5 days ago and developed pain swelling and redness about [address] scan of the left foot in the ED showed no abscess formation. I do not feel in all views collection that can be drained at this time. Recommendations. Continue with IV antibiotics Elevate left leg No obvious need for surgical intervention at this time. We will sign off but call for any questions.
[2020-05-21] MEDS: VANCOMYCIN HCL 1,250 MG in DEXTROSE 5%-WATER 250 ML IV SCH (21:36)
[2020-05-21] MEDS: HEPARIN SOD (PORCINE) 5,000 UNIT/ML 1 ML VIAL SUBCUT SCH (21:36)
[2020-05-22] MEDS: CLINDAMYCIN 600 MG/D5W RTU 600 MG/50 ML RTUPB IV SCH ×3 (01:02→17:10)
[2020-05-22] MEDS: VANCOMYCIN HCL 1,250 MG in DEXTROSE 5%-WATER 250 ML IV SCH ×3 (05:33→21:29)
[2020-05-22] MEDS: PANTOPRAZOLE SODIUM 40 MG TABLET.DR PO SCH (05:34)
[2020-05-22] MEDS: HEPARIN SOD (PORCINE) 5,000 UNIT/ML 1 ML VIAL SUBCUT SCH ×3 (05:34→21:29)
[2020-05-22] MEDS: HYDROMORPHONE HCL INJ/PF 2 MG/ML AMPULE IV PRN ×3 (05:37→22:57)
[2020-05-22 06:54] LABS: ABSOLUTE BASOPHILS # (AUTO) 0.1 10^3/uL (0.0-0.2); ABSOLUTE EOSINOPHILS # (AUTO) 0.4 10^3/uL (0.0-0.6); ABSOLUTE LYMPHOCYTES (AUTO) 1.8 10^3/uL (0.5-4.7); ABSOLUTE MONOCYTES (AUTO) 0.7 10^3/uL (0.1-1.4); ABSOLUTE NEUT (AUTO) 4.7 10^3/uL (1.7-8.2); BASOPHILS % (AUTO) 1.1 % (0-2); EOSINOPHILS % (AUTO) 4.7 % (0-6); HEMATOCRIT 35.7 % (37.9-51.0); HEMOGLOBIN 12.3 g/dL (13.5-17.0); LYMPHOCYTES % (AUTO) 23.1 % (13-45); MEAN CORPUSCULAR HEMOGLOBIN 28.6 pg (27.0-33.4); MEAN CORPUSCULAR HGB CONC 34.5 g/dL (32.0-36.0); MEAN CORPUSCULAR VOLUME 83 fl (80-97); MONOCYTES % (AUTO) 9.3 % (3-13); PLATELET COUNT 297 10^3/uL (150-450); RED BLOOD COUNT 4.32 10^6/uL (4.35-5.55); SEGMENTED NEUTROPHILS % (AUTO) 61.8 % (42-78); TOTAL CELLS COUNTED % (AUTO) 100 %; WHITE BLOOD COUNT 7.6 10^3/uL (4.0-10.5)
[2020-05-22 07:21] LABS: ALBUMIN 3.7 g/dL (3.5-5.0); ALKALINE PHOSPHATASE 72 U/L (38-126); ANION GAP 6 (5-19); ASPARTATE AMINO TRANSFERASE 19 U/L (17-59); BILIRUBIN,TOTAL 0.3 mg/dL (0.2-1.3); BLOOD UREA NITROGEN 17 mg/dL (7-20); CALCIUM 9.2 mg/dL (8.4-10.2); CARBON DIOXIDE 28 mmol/L (22-30); CHLORIDE 102 mmol/L (98-107); CHOLESTEROL 145.28 mg/dL (0-200); GLUCOSE 122 mg/dL (75-110); POTASSIUM 4.5 mmol/L (3.6-5.0); TOTAL PROTEIN 7.1 g/dL (6.3-8.2); TRIGLYCERIDES 103 mg/dL (<150)
[2020-05-22 07:32] LABS: DIRECT LDL 83 mg/dL (<100)
--- NOTE | 2020-05-22 08:47 | EKG REPORT ---
SEVERITY:- NORMAL ECG - SINUS RHYTHM : Confirmed by: Enmanuel Rinaldi MD 22-May-2020 08:46:36
--- NOTE | 2020-05-22 09:33 | PDOC PROGRESS REPORT ---
Subjective Progress Note for:: 05/22/20 Subjective:: 29 year old male with history of IV drug abuse uses heroin cocaine, oxycodone, smokes marijuana, chronic smoker came to the emergency room with complaints of 3 days history of left foot swelling and pain. As per him it started as a scratch after poison curt exposure then started swelling with increasing pain and redness. He adamantly denies shooting IV needles in the left foot. Decided to came to the emergency room for further evaluation denies any fever complains of chills. He admitted to using heroin, cocaine on regular basis. Also smokes., Chronic smoker. Denies any other medical problems. Denies any history of endocarditis. 05/22/2020-patient is comfortably in the bed communicating well. Left leg swelling and cellulitis improving. Blood cultures are pending at this time. Patient is receiving IV vancomycin and clindamycin at this time. Reason For Visit: LT FOOT CELLULITIS Physical Exam Vital Signs: Temp Pulse Resp BP Pulse Ox 98.5 F 72 17 129/58 H 100 05/22/20 00:09 05/22/20 00:09 05/22/20 00:09 05/22/20 00:09 05/22/20 00:09 Intake & Output 05/21/20 05/22/20 05/23/20 06:59 06:59 06:59 Intake Total 1515 250 Balance 1515 250 Weight 79.4 kg General appearance: PRESENT: no acute distress, well-developed Head exam: PRESENT: atraumatic Eye exam: PRESENT: PERRLA Ear exam: PRESENT: normal external ear exam Mouth exam: PRESENT: neck supple Neck exam: ABSENT: carotid bruit, JVD, lymphadenopathy, thyromegaly Respiratory exam: PRESENT: decreased breath sounds Cardiovascular exam: PRESENT: RRR. ABSENT: diastolic murmur, rubs, systolic murmur GI/Abdominal exam: PRESENT: normal bowel sounds, soft. ABSENT: distended, guarding, mass, organolmegaly, rebound, tenderness Rectal exam: PRESENT: deferred Extremities exam: PRESENT: full ROM, other - Left foot swelling and redness is improving.. ABSENT: calf tenderness, clubbing, pedal edema Neurological exam: PRESENT: alert, awake, oriented to person, oriented to place, oriented to time, oriented to situation, CN II-XII grossly intact. ABSENT: motor sensory deficit Results Laboratory Results: 05/22/20 06:28 05/22/20 06:28 05/21/20 05/21/20 05/21/20 10:50 10:50 10:50 WBC 8.9 RBC 4.30 L Hgb 12.1 L Hct 35.4 L MCV 82 MCH 28.2 MCHC 34.2 RDW 13.0 Plt Count 317 Seg Neutrophils % 67.8 Sodium 137.6 Potassium 4.6 Chloride 99 Carbon Dioxide 31 H Anion Gap 8 BUN 16 Creatinine 0.75 Est GFR ( Amer) > 60 Glucose 108 Lactic Acid 0.6 L Calcium 9.8 Magnesium Total Bilirubin 0.4 AST 25 Alkaline Phosphatase 89 Total Protein 8.4 H Albumin 4.5 Triglycerides Cholesterol LDL Cholesterol Direct VLDL Cholesterol HDL Cholesterol TSH 05/22/20 05/22/20 05/22/20 06:23 06:28 06:28 WBC 7.6 RBC 4.32 L Hgb 12.3 L Hct 35.7 L MCV 83 MCH 28.6 MCHC 34.5 RDW 13.0 Plt Count 297 Seg Neutrophils % 61.8 Sodium 136.2 L Potassium 4.5 Chloride 102 Carbon Dioxide 28 Anion Gap 6 BUN 17 Creatinine 0.81 Est GFR ( Amer) > 60 Glucose 122 H Lactic Acid Calcium 9.2 Magnesium 2.0 Total Bilirubin 0.3 AST 19 Alkaline Phosphatase 72 Total Protein 7.1 Albumin 3.7 Triglycerides 103 Cholesterol 145.28 LDL Cholesterol Direct 83 VLDL Cholesterol 21.0 HDL Cholesterol 44 TSH 0.39 L Impressions: Foot X-Ray 05/21/20 10:49 IMPRESSION: NEGATIVE STUDY OF THE LEFT FOOT. NO RADIOGRAPHIC EVIDENCE OF ACUTE INJURY. NO EVIDENCE FOR OSTEOMYELITIS. Lower Extremity CT 05/21/20 13:50 IMPRESSION: Generalized subcutaneous edema. No obvious localized fluid collection although CT is limited for such evaluation. No obvious osteomyelitis. Chest X-Ray 05/21/20 16:05 IMPRESSION: NO SIGNIFICANT RADIOGRAPHIC FINDING IN THE CHEST. Assessment and Plan - Diagnosis (1) Cellulitis Qualifiers: Site of cellulitis: extremity Site of cellulitis of extremity: lower extremity Laterality: left Qualified Code(s): L03.116 - Cellulitis of left lower limb Is this a current diagnosis for this admission?: Yes Plan: 05/21/2020-patient is good to be admitted to medical floor, without telemetry as an inpatient. To start him on IV vancomycin, clindamycin GI prophylaxis DVT prophylaxis initiated. Started on a Dilaudid 1 mg IV every 8 as needed for pain. Consultation with Dr. Yang will be requested. Blood cultures are pending. xray/CT did not suggestive of osteomyelitis. 05/22/2020-left foot swelling and redness is improving compared to yesterday. Plan is to continue IV vancomycin, IV clindamycin at this time. Blood cultures are pending. (2) IV drug abuse Is this a current diagnosis for this admission?: Yes Plan: 05/21/2020-patient has history of IV drug abuse including heroin and cocaine. P sych consult will be requested. (3) Tobacco abuse Is this a current diagnosis for this admission?: Yes Plan: 05/21/2020-patient is a chronic daily day smoker smoking counseling was provided. To place him on nicotine patches. - Time Anticipated discharge: Home Within: within 72 hours
[2020-05-22] MEDS: DOCUSATE SODIUM 100 MG/10 ML UDC PO SCH (10:05)
[2020-05-22] MEDS: NORMAL SALINE 1000 ML 1,000 ML IV PRN (17:11)
--- NOTE | 2020-05-22 21:24 | PDOC PROGRESS REPORT ---
Subjective Progress Note for:: 05/22/20 Subjective:: Less pains from the left foot cellulitis but patient asking for more pain medications since he feels 1 mg Dilaudid every 6 hours not adequate for his drug addiction. He is asking to be discharged soon as possible. Reason For Visit: LT FOOT CELLULITIS Physical Exam Vital Signs: Temp Pulse Resp BP Pulse Ox 98.6 F 102 H 12 140/87 H 99 05/22/20 16:34 05/22/20 16:34 05/22/20 16:34 05/22/20 16:34 05/22/20 16:34 Intake & Output 05/21/20 05/22/20 05/23/20 06:59 06:59 06:59 Intake Total 1515 1905 Balance 1515 1905 Weight 79.4 kg Exam: Cellulitis of the left lower leg is definitely improving with less erythema and swelling. Results Laboratory Results: 05/22/20 06:28 05/22/20 06:28 05/22/20 05/22/20 05/22/20 06:23 06:28 06:28 WBC 7.6 RBC 4.32 L Hgb 12.3 L Hct 35.7 L MCV 83 MCH 28.6 MCHC 34.5 RDW 13.0 Plt Count 297 Seg Neutrophils % 61.8 Sodium 136.2 L Potassium 4.5 Chloride 102 Carbon Dioxide 28 Anion Gap 6 BUN 17 Creatinine 0.81 Est GFR ( Amer) > 60 Glucose 122 H Calcium 9.2 Magnesium 2.0 Total Bilirubin 0.3 AST 19 Alkaline Phosphatase 72 Total Protein 7.1 Albumin 3.7 Triglycerides 103 Cholesterol 145.28 LDL Cholesterol Direct 83 VLDL Cholesterol 21.0 HDL Cholesterol 44 TSH 0.39 L Impressions: Foot X-Ray 05/21/20 10:49 IMPRESSION: NEGATIVE STUDY OF THE LEFT FOOT. NO RADIOGRAPHIC EVIDENCE OF ACUTE INJURY. NO EVIDENCE FOR OSTEOMYELITIS. Lower Extremity CT 05/21/20 13:50 IMPRESSION: Generalized subcutaneous edema. No obvious localized fluid collection although CT is limited for such evaluation. No obvious osteomyelitis. Chest X-Ray 05/21/20 16:05 IMPRESSION: NO SIGNIFICANT RADIOGRAPHIC FINDING IN THE CHEST. Assessment & Plan - Diagnosis (1) Cellulitis Qualifiers: Site of cellulitis: extremity Site of cellulitis of extremity: lower extremity Laterality: left Qualified Code(s): L03.116 - Cellulitis of left lower limb Is this a current diagnosis for this admission?: Yes (2) IV drug abuse Is this a current diagnosis for this admission?: Yes (3) Tobacco abuse Is this a current diagnosis for this admission?: Yes - Time Critical Time spent with patient: Less than 15 minutes - Plan Summary Plan Summary: Cellulitis of the left foot improving. Patient may be discharged on p.o. antibiotics per hospitalist
--- NOTE | 2020-05-23 00:27 | CDI QUERY ---
CDI Query CDI Review: We are seeking further clarification of documentation to reflect the severity of illness of your patient. Per H&P: history of IV drug abuse uses heroin cocaine, oxycodone, smokes marijuana, chronic smoker 05/21/2020-patient has history of IV drug abuse including heroin and cocaine. Psych consult will be requested. Based on your medical judgement, can you further clarify in the Progress Notes: Heroin / cocaine abuse with dependence continuous use Heroin / cocaine abuse with dependence episodic use Heroin / cocaine abuse with dependence daily use Heroin / cocaine abuse without dependence Unable to determine Other Thank you for your consideration. LOIS Falcon RN Clinical Medical Consultant Physician Advisor [email or web address]
[2020-05-23] MEDS: CLINDAMYCIN 600 MG/D5W RTU 600 MG/50 ML RTUPB IV SCH ×2 (03:27→09:21)
[2020-05-23] MEDS: HEPARIN SOD (PORCINE) 5,000 UNIT/ML 1 ML VIAL SUBCUT SCH (05:32)
[2020-05-23] MEDS: PANTOPRAZOLE SODIUM 40 MG TABLET.DR PO SCH (05:33)
[2020-05-23] MEDS: VANCOMYCIN HCL 1,250 MG in DEXTROSE 5%-WATER 250 ML IV SCH (05:33)
[2020-05-23] MEDS: HYDROMORPHONE HCL INJ/PF 2 MG/ML AMPULE IV PRN (09:26)
[2020-05-23] MEDS: DOCUSATE SODIUM 100 MG/10 ML UDC PO SCH (09:28)
--- NOTE | 2020-05-23 10:09 | PDOC DISCHARGE SUMMARY ---
Impression - Admit/DC Date/PCP Admission Date/Primary Care Provider: 05/21/20 15:49 Discharge Date: 05/23/20 - Discharge Diagnosis (1) Cellulitis Is this a current diagnosis for this admission?: Yes (2) IV drug abuse Is this a current diagnosis for this admission?: Yes (3) Tobacco abuse Is this a current diagnosis for this admission?: Yes - Assessment Summary: (1) Cellulitis Qualifiers: Site of cellulitis: extremity Site of cellulitis of extremity: lower extremity Laterality: left Qualified Code(s): L03.116 - Cellulitis of left lower limb Is this a current diagnosis for this admission?: Yes Plan: 05/21/2020-patient is good to be admitted to medical floor, without telemetry as an inpatient. To start him on IV vancomycin, clindamycin GI prophylaxis DVT prophylaxis initiated. Started on a Dilaudid 1 mg IV every 8 as needed for pain. Consultation with Dr. Yang will be requested. Blood cultures are pe nding. xray/CT did not suggestive of osteomyelitis. 05/22/2020-left foot swelling and redness is improving compared to yesterday. Plan is to continue IV vancomycin, IV clindamycin at this time. Blood cultures are pending. 05/23/2020-blood cultures are negative so far. Left foot swelling and redness improving. Patient agreed to go home on p.o. antibiotic therapy. Given a prescription for clindamycin 300 mg 4 times a day for 10 days. Patient is advised to follow-up with primary care physician next week. (2) IV drug abuse Is this a current diagnosis for this admission?: Yes Plan: 05/21/2020-patient has history of IV drug abuse including heroin and cocaine. Psych consult will be requested. 05/23/2020-patient has a history of IV drug abuse,pt uses heroin/cocaine with the dependence continuous use. Again counseling was provided today. (3) Tobacco abuse Is this a current diagnosis for this admission?: Yes Plan: 05/21/2020-patient is a chronic daily day smoker smoking counseling was provided. To place him on nicotine patches. - Additional Information Resuscitation Status: Full Code Discharge Diet: Regular Discharge Activity: Activity As Tolerated Referrals: [facility] [Outside] (PATIENT WILL NEED TO CALL AND ESTABLISH CARE WITH CLINIC. THE OFFICE STAFF WILL SET UP A TELE HEALTH APPT. DATE AND TIME.) Prescriptions: Clindamycin HCl 300 mg PO QID 10 Days #40 capsule Home Medications: Clindamycin HCl 300 mg PO QID 10 Days #40 capsule 05/23/20 History of Present Illiness History of Present Illness: TONY HUTSON is a 29 year old male with history of IV drug abuse uses heroin cocaine, oxycodone, smokes marijuana, chronic smoker came to the emergency room with complaints of 3 days history of left foot swelling and pain. As per him it started as a scratch after poison curt exposure then started swelling with increasing pain and redness. He adamantly denies shooting IV needles in the left foot. Decided to came to the emergency room for further evaluation denies any fever complains of chills. He admitted to using heroin, cocaine on regular basis. Also smokes., Chronic smoker. Denies any other medical problems. Denies any history of endocarditis. Hospital Course Hospital Course: 29 year old male with history of IV drug abuse uses heroin cocaine, oxycodone, smokes marijuana, chronic smoker came to the emergency room with complaints of 3 days history of left foot swelling and pain. As per him it started as a scratch after poison curt exposure then started swelling with increasing pain and redness. He adamantly denies shooting IV needles in the left foot. Decided to came to the emergency room for further evaluation denies any fever complains of chills. He admitted to using heroin, cocaine on regular basis. Also smokes., Chronic smoker. Denies any other medical problems. Denies any history of endocarditis. 05/22/2020-patient is comfortably in the bed communicating well. Left leg swelling and cellulitis improving. Blood cultures are pending at this time. Patient is receiving IV vancomycin and clindamycin at this time. 05/23/2020-no acute events in the last 24 hours. Left foot swelling and erythema is improving. Blood cultures are negative. Patient was given a prescription for clindamycin 300 mg 4 times a day for 10 days. Discussed side effects at length. He understood and verbalized the response. If he gets severe diarrhea, advised him to discontinue antibiotics and follow-up with the primary care physician. Physical Exam Vital Signs: Temp Pulse Resp BP Pulse Ox 97.8 F 58 L 16 127/61 H 97 05/23/20 08:15 05/23/20 08:15 05/23/20 08:15 05/23/20 08:15 05/23/20 08:15 Intake & Output 05/22/20 05/23/20 05/24/20 06:59 06:59 06:59 Intake Total 1515 2255 250 Balance 1515 2255 250 Weight 79.4 kg 77.7 kg General appearance: PRESENT: no acute distress, well-developed Head exam: PRESENT: atraumatic Eye exam: PRESENT: PERRLA Mouth exam: PRESENT: moist, tongue midline Teeth exam: PRESENT: poor dentation Neck exam: ABSENT: carotid bruit, JVD, lymphadenopathy, thyromegaly Respiratory exam: PRESENT: clear to auscultation kenyatta. ABSENT: rales, rhonchi, wheezes Cardiovascular exam: PRESENT: RRR. ABSENT: diastolic murmur, rubs, systolic murmur GI/Abdominal exam: PRESENT: normal bowel sounds, soft. ABSENT: distended, guarding, mass, organolmegaly, rebound, tenderness Rectal exam: PRESENT: deferred Extremities exam: PRESENT: other - Left foot swelling and erythema, redness resolving. Neurological exam: PRESENT: alert, awake, oriented to person, oriented to place, oriented to time, oriented to situation, CN II-XII grossly intact. ABSENT: motor sensory deficit Psychiatric exam: PRESENT: appropriate affect, normal mood. ABSENT: homicidal ideation, suicidal ideation Results Laboratory Results: WBC 7.6 10^3/uL (4.0-10.5) 05/22/20 06:28 RBC 4.32 10^6/uL (4.35-5.55) L 05/22/20 06:28 Hgb 12.3 g/dL (13.5-17.0) L 05/22/20 06:28 Hct 35.7 % (37.9-51.0) L 05/22/20 06:28 MCV 83 fl (80-97) 05/22/20 06:28 MCH 28.6 pg (27.0-33.4) 05/22/20 06:28 MCHC 34.5 g/dL (32.0-36.0) 05/22/20 06:28 RDW 13.0 % (11.5-14.0) 05/22/20 06:28 Plt Count 297 10^3/uL (150-450) 05/22/20 06:28 Lymph % (Auto) 23.1 % (13-45) 05/22/20 06:28 Imperial % (Auto) 9.3 % (3-13) 05/22/20 06:28 Eos % (Auto) 4.7 % (0-6) 05/22/20 06:28 Baso % (Auto) 1.1 % (0-2) 05/22/20 06:28 Absolute Neuts (auto) 4.7 10^3/uL (1.7-8.2) 05/22/20 06:28 Absolute Lymphs (auto) 1.8 10^3/uL (0.5-4.7) 05/22/20 06:28 Absolute Monos (auto) 0.7 10^3/uL (0.1-1.4) 05/22/20 06:28 Absolute Eos (auto) 0.4 10^3/uL (0.0-0.6) 05/22/20 06:28 Absolute Basos (auto) 0.1 10^3/uL (0.0-0.2) 05/22/20 06:28 Seg Neutrophils % 61.8 % (42-78) 05/22/20 06:28 Sodium 136.2 mmol/L (137-145) L 05/22/20 06:28 Potassium 4.5 mmol/L (3.6-5.0) 05/22/20 06:28 Chloride 102 mmol/L (98-107) 05/22/20 06:28 Carbon Dioxide 28 mmol/L (22-30) 05/22/20 06:28 Anion Gap 6 (5-19) 05/22/20 06:28 BUN 17 mg/dL (7-20) 05/22/20 06:28 Creatinine 0.81 mg/dL (0.52-1.25) 05/22/20 06:28 Est GFR ( Amer) > 60 (>60) 05/22/20 06:28 Est GFR (MDRD) Non-Af > 60 (>60) 05/22/20 06:28 Glucose 122 mg/dL (75-110) H 05/22/20 06:28 Lactic Acid 0.6 mmol/L (0.7-2.1) L 05/21/20 10:50 Calcium 9.2 mg/dL (8.4-10.2) 05/22/20 06:28 Magnesium 2.0 mg/dL (1.6-2.3) 05/22/20 06:28 Total Bilirubin 0.3 mg/dL (0.2-1.3) 05/22/20 06:28 Direct Bilirubin 0.0 mg/dL (0.0-0.4) 05/22/20 06:28 Neonat Total Bilirubin Not Reportable 05/22/20 06:28 Neonat Direct Bilirubin Not Reportable 05/22/20 06:28 Neonat Indirect Bili Not Reportable 05/22/20 06:28 AST 19 U/L (17-59) 05/22/20 06:28 ALT 15 U/L (<50) 05/22/20 06:28 Alkaline Phosphatase 72 U/L (38-126) 05/22/20 06:28 Total Protein 7.1 g/dL (6.3-8.2) 05/22/20 06:28 Albumin 3.7 g/dL (3.5-5.0) 05/22/20 06:28 Triglycerides 103 mg/dL (<150) 05/22/20 06:28 Cholesterol 145.28 mg/dL (0-200) 05/22/20 06:28 LDL Cholesterol Direct 83 mg/dL (<100) 05/22/20 06:28 VLDL Cholesterol 21.0 mg/dL (10-31) 05/22/20 06:28 HDL Cholesterol 44 mg/dL (>40) 05/22/20 06:28 TSH 0.39 uIU/mL (0.47-4.68) L 05/22/20 06:23 Urine Opiates Screen UNCONFIRMED POSITIVE 05/21/20 15:30 Urine Methadone Screen NEGATIVE 05/21/20 15:30 Ur Barbiturates Screen NEGATIVE 05/21/20 15:30 Ur Phencyclidine Scrn NEGATIVE 05/21/20 15:30 Ur Amphetamines Screen 05/21/20 15:30 U Benzodiazepines Scrn NEGATIVE 05/21/20 15:30 Urine Cocaine Screen UNCONFIRMED POSITIVE 05/21/20 15:30 U Marijuana (THC) Screen NEGATIVE 05/21/20 15:30 Impressions: Foot X-Ray 05/21/20 10:49 IMPRESSION: NEGATIVE STUDY OF THE LEFT FOOT. NO RADIOGRAPHIC EVIDENCE OF ACUTE INJURY. NO EVIDENCE FOR OSTEOMYELITIS. Lower Extremity CT 05/21/20 13:50 IMPRESSION: Generalized subcutaneous edema. No obvious localized fluid collection although CT is limited for such evaluation. No obvious osteomyelitis. Chest X-Ray 05/21/20 16:05 IMPRESSION: NO SIGNIFICANT RADIOGRAPHIC FINDING IN THE CHEST. Plan Plan of Treatment: Patient is strongly advised to quit smoking, advised to discontinue using recreational drugs like heroin and cocaine, marijuana. Time Spent: Greater than 30 Minutes Stroke Is this a Stroke Patient?: No Acute Heart Failure - Is this a Heart Failure Patient?: No
[2020-05-23 11:29] VITALS: BP 125/73
== END 2020-05-23 12:00 | disposition home or self-care (01) | DRG 603 ==
LOC: ER 09:02 → EH 15:49 → 4S 17:38
PROVIDERS: ADMIT Internal Medicine; ATTEND Internal Medicine
DX: L03.116 Cellulitis of left lower limb (principal); F14.10 Cocaine abuse, uncomplicated; F11.10 Opioid abuse, uncomplicated; F12.10 Cannabis abuse, uncomplicated; F17.210 Nicotine dependence, cigarettes, uncomplicated; F41.9 Anxiety disorder, unspecified; F32.9 Major depressive disorder, single episode, unspecified; Z88.0 Allergy status to penicillin; Z88.1 Allergy status to other antibiotic agents
CPT/HCPCS: 36415; 71045; 80053; 80061; 80307; 83605; 83735; 84443; 85025; 87040; 93005; 93010; 96365; 96375; 99285; J1170; J1644; J1885; J3370; J3490; J7030; J7060